=== PATIENT | female | born 1970 | race American Indian/Alaskan Native ===

== ENCOUNTER 2017-02-25 11:00 | Inpatient (IN) | payer OTHER ==
[2017-02-25] MEDS ORDERED: NITROSTAT SL ONE (12:56)
[2017-02-25] MEDS ORDERED: ASPIRIN PO ONE (12:56)
[2017-02-25] MEDS ORDERED: CATAPRES PO ONE (12:57)
--- NOTE | 2017-02-25 12:57 | Emergency Department Report ---
ED Chest Pain HPI - General Chief Complaint: Chest Pain Stated Complaint: CHEST PAIN Time Seen by Provider: 02/25/17 12:31 Source: patient, EMS Mode of arrival: Stretcher Limitations: No Limitations - History of Present Illness Initial Comments: Vision is a 46-year-old asthmatic female who is presenting with chest pain. Patient states that pain started approximately a week ago I was off and on. Patient states feels very mild initially. The patient does state that her pain was exertional. Patient states for the past 24 hours of pain in his increased in severity and it has gone from initially a 2 out of 10 in severity to 8 out of 10 in severity. Patient states there is some radiation of his pain to the left arm and back. Patient describes the pain as a crampy pain at the left breast. Patient states she has had a abnormal EKG in the past and has had a cardiac evaluation several years ago in [place]. Patient normally carries a copy of her EKG with her however she did not bring it today. Patient states the pain is slightly improved after aspirin but is still present. Pain at the time of interview was 3 out of 10 in severity MD Complaint: chest pain - Related Data Allergies Allergy/AdvReac Type Severity Reaction Status Date / Time fluticasone [From Flonase] Allergy Unknown Verified 02/25/17 12:39 prochlorperazine Allergy Unknown Verified 02/25/17 12:39 [From Compazine] Heart Score - HEART Score History: Highly suspicious EKG: Significant ST-depression Age: 45-65 Risk factors: 1-2 risk factors Troponin: < normal limit HEART Score: 6 ED Review of Systems ROS: Stated complaint: CHEST PAIN Other details as noted in HPI Comment: All other systems reviewed and negative ED Past Medical Hx - Past Medical History Previous Medical History?: Yes Hx Hypertension: Yes Hx GERD: Yes Additional medical history: mag deficiency ED Physical Exam - General Limitations: No Limitations General appearance: alert, in no apparent distress - Head Head exam: Present: atraumatic, normocephalic - Eye Eye exam: Present: normal appearance - ENT ENT exam: Present: mucous membranes moist - Neck Neck exam: Present: normal inspection - Respiratory Respiratory exam: Present: normal lung sounds bilaterally. Absent: respiratory distress - Cardiovascular Cardiovascular Exam: Present: regular rate, normal rhythm. Absent: systolic murmur, diastolic murmur, rubs, gallop - GI/Abdominal GI/Abdominal exam: Present: soft, normal bowel sounds - Extremities Exam Extremities exam: Present: normal inspection - Back Exam Back exam: Present: normal inspection - Neurological Exam Neurological exam: Present: alert, oriented X3 - Psychiatric Psychiatric exam: Present: normal affect, normal mood - Skin Skin exam: Present: warm, dry, intact, normal color. Absent: rash ED Course Vital Signs 02/25/17 02/25/17 02/25/17 12:42 12:45 13:00 Temperature Pulse Rate 91 H 94 H 90 Respiratory 13 21 17 Rate Blood Pressure 195/165 205/142 Blood Pressure [Left] O2 Sat by Pulse Oximetry 02/25/17 02/25/17 02/25/17 13:06 13:08 13:10 Temperature 98.2 F Pulse Rate 91 H 87 Respiratory 19 19 Rate Blood Pressure 195/165 Blood Pressure 195/165 [Left] O2 Sat by Pulse 98 98 Oximetry 02/25/17 02/25/17 02/25/17 13:15 13:30 13:45 Temperature Pulse Rate 88 87 82 Respiratory 19 16 21 Rate Blood Pressure 198/134 197/141 179/131 Blood Pressure [Left] O2 Sat by Pulse Oximetry CORY score - Cory Score Age > 65: (0) No Aspirin use within the Past 7 Days: (1) Yes 3 or more CAD Risk Factors: (0) No 2 or more Angina events in past 24 hrs: (1) Yes Known CAD with more than 50% Stenosis: (0) No Elevated Cardiac Markers: (0) No ST Deviation Greater than 0.5mm: (1) Yes CORY Score: 3 ED Medical Decision Making - Lab Data Result diagrams: 02/25/17 Unknown 02/25/17 Unknown - EKG Data -: EKG Interpreted by Sd - EKG Data Interpretation: other (EKG shows sinus rhythm rate of 87 axis is normal intervals are normal there is LVH [address] depression in inferior leads there is [address] elevation in V1 through V3 T-wave inversions in lateral leads, interpretation is 1247) - Radiology Data Radiology results: report reviewed no acute process - Medical Decision Making After EKG was performed patient's EKG was sent to Dr. Ingram with interventional cardiology. Patient was deemed not a STEMI and that the changes on her EKG will most likely secondary to left ventricular hypertrophy. Patient was nondiaphoretic with very little pain or discomfort at the time of interview. We have elected to wait to see if the troponin is elevated. The troponin was normal. Patient's will still be admitted for serial enzymes and blood pressure control. At the time of admission blood pressure was 170 systolic Critical Care Time: Yes Critical care time in (mins) excluding proc time.: 30 Critical care attestation.: If time is entered above; I have spent that time in minutes in the direct care of this critically ill patient, excluding procedure time. ED Disposition Clinical Impression: Hypertensive emergency without congestive heart failure Chest pain Qualifiers: Chest pain type: unspecified Qualified Code(s): R07.9 - Chest pain, unspecified Disposition: 09 OP ADMIT IP TO THIS HOSP Is pt being admited?: Yes Does the pt Need Aspirin: No Condition: Stable Instructions: Hypertension (ED), Chest Pain (ED) Referrals: PRIMARY CARE, [Primary Care Provider] - 3-5 Days
[2017-02-25 13:01] LABS: Bacteria,Urine 1+ /HPF (Negative); Bilirubin,Urine NEG (Negative); Blood,Urine NEG (Negative); Color,Urine Yellow (Yellow); Nitrite,Urine NEG (Negative); Urobilinogen,Urine < 2.0 mg/dL (<2.0)
[2017-02-25 13:15] LABS: Protein,Urine >500 mg/dL (Negative)
--- NOTE | 2017-02-25 13:27 | XRay Report ---
AP CHEST: HISTORY: chest pain AP view of the chest demonstrates a normal mediastinal and cardiac contour with clear lungs and normal bony and soft tissue structures. IMPRESSION: Unremarkable AP chest.
[2017-02-25 13:28] LABS: Basophils % (Auto) 0.5 % (0.0-1.8); Eosinophils # (Auto) 0.1 K/mm3 (0.0-0.4); Eosinophils % (Auto) 0.9 % (0.0-4.3); Hematocrit 47.7 % (30.3-42.9); Hemoglobin 15.2 gm/dl (10.1-14.3); Mean Corpuscular HGB Conc 32 % (30-34); Mean Corpuscular Hemoglobin 28 pg (28-32); Mean Corpuscular Volume 88 fl (79-97); Monocytes # (Auto) 0.6 K/mm3 (0.0-0.8); Monocytes % (Auto) 7.2 % (0.0-7.3); Platelet Count 219 K/mm3 (140-440); Red Blood Count 5.39 M/mm3 (3.65-5.03); Red Cell Distribution Width 15.1 % (13.2-15.2)
[2017-02-25 13:51] LABS: Albumin 4.9 g/dL (3.9-5); Calcium 9.6 mg/dL (8.4-10.2)
[2017-02-25 14:36] LABS: INR 0.95 (0.87-1.13)
--- NOTE | 2017-02-25 20:09 | History and Physical Report ---
History of Present Illness Date of examination: 02/25/17 Date of admission: 02/25/17 14:19 Chief complaint: Chieg complaint: Chest pain for 1 week History of present illness: History of Present Illness: 46-year-old -[place] femalewith history of asthma hypertension and GERD comes in for intermittent chest pain for 1 week. Chest pain is exertional. The chest pain has increased in in. Now it is about 8 on a scale of 1 to 10. Pain is dull in character and sometimes crampy.No diaphoresis.No shortness of breath.no palpitations. Patient apparently had an EKG in the past. Patient did not bring the EKG today. No syncope. No seizures Past Medical History Previous Medical History?: Yes Hx Hypertension: Yes Hx GERD: Yes Additional medical history: mag deficiency Past surgical history: none Social history doesn't smoke no alcohol Family history hypertension Review of System: Constitutional: no fever, no chills, no weight loss Ears, eyes, nose, mouth and throat: no nasal congestion, no nasal discharge, no sinus pressure, no vision change, no red eye. Neck: No neck pain or rigidity. Cardiovascular: Chest pain, no orthopnea, no palpitations, no leg swelling Respiratory: No shortness of breath, no cough, no congestion, no wheezing Gastrointestinal: no abdominal pain, no nausea, no vomiting Genitourinary : no dysuria, no hematuria Musculoskeletal: no joint swelling or muscle ache Integumentary: no rash, no pruritis Neurological: no parathesias, no numbness, no tingling Endocrine: no cold or heat intolerance, no polyuria or polydipsia Hematologic/Lymphatic: no easy bruising, no easy bleeding, no gland swelling Allergic/Immunologic: no urticaria, no angioedema. Medications and Allergies Allergies Allergy/AdvReac Type Severity Reaction Status Date / Time fluticasone [From Flonase] Allergy Unknown Verified 02/25/17 12:39 prochlorperazine Allergy Unknown Verified 02/25/17 12:39 [From Compazine] Home Medications Medication Instructions Recorded Confirmed Last Taken Type Amlodipine Besylate [Norvasc] 10 mg PO QDAY 02/25/17 02/25/17 Unknown History Losartan [Cozaar] 100 mg PO QDAY 02/25/17 02/25/17 Unknown History Active Meds: Active Medications Heparin Sodium (Porcine) (Heparin) 5,000 unit SUB-Q Q8HR ERIC Exam - Physical Exam Narrative exam: lying in bed comfortably - Constitutional Vitals: Temp Pulse Resp BP Pulse Ox 98.2 F 74 14 119/86 98 02/25/17 13:10 02/25/17 16:30 02/25/17 16:30 02/25/17 16:30 02/25/17 13:10 General appearance: Present: no acute distress, well-nourished - EENT Eyes: Present: PERRL ENT: hearing intact, clear oral mucosa - Neck Neck: Present: supple, normal ROM - Respiratory Respiratory effort: normal Respiratory: bilateral: CTA - Cardiovascular Heart rate: 80 Rhythm: regular Heart Sounds: Present: S1 & S2. Absent: rub, click - Extremities Extremities: pulses symmetrical, No edema Peripheral Pulses: within normal limits - Abdominal General gastrointestinal: Present: soft, non-tender, non-distended, normal bowel sounds Female genitourinary: Present: normal - Integumentary Integumentary: Present: clear, warm, dry - Musculoskeletal Musculoskeletal: gait normal, strength equal bilaterally - Psychiatric Psychiatric: appropriate mood/affect, intact judgment & insight - Neurologic Neurologic: CNII-XII intact, moves all extremities - Allied Health Allied health notes reviewed: nursing, case management Results - Labs CBC & Chem 7: 02/25/17 Unknown 02/25/17 Unknown Labs: Laboratory Last Values WBC 8.4 K/mm3 (4.5-11.0) 02/25/17 Unknown RBC 5.39 M/mm3 (3.65-5.03) H 02/25/17 Unknown Hgb 15.2 gm/dl (10.1-14.3) H 02/25/17 Unknown Hct 47.7 % (30.3-42.9) H 02/25/17 Unknown MCV 88 fl (79-97) 02/25/17 Unknown MCH 28 pg (28-32) 02/25/17 Unknown MCHC 32 % (30-34) 02/25/17 Unknown RDW 15.1 % (13.2-15.2) 02/25/17 Unknown Plt Count 219 K/mm3 (140-440) 02/25/17 Unknown Lymph % (Auto) 12.0 % (13.4-35.0) L 02/25/17 Unknown [place] % (Auto) 7.2 % (0.0-7.3) 02/25/17 Unknown Eos % (Auto) 0.9 % (0.0-4.3) 02/25/17 Unknown Baso % (Auto) 0.5 % (0.0-1.8) 02/25/17 Unknown Lymph # 1.0 K/mm3 (1.2-5.4) L 02/25/17 Unknown [place] # 0.6 K/mm3 (0.0-0.8) 02/25/17 Unknown Eos # 0.1 K/mm3 (0.0-0.4) 02/25/17 Unknown Baso # 0.0 K/mm3 (0.0-0.1) 02/25/17 Unknown Seg Neutrophils % 79.4 % (40.0-70.0) H 02/25/17 Unknown Seg Neutrophils # 6.7 K/mm3 (1.8-7.7) 02/25/17 Unknown PT 13.2 Sec. (12.2-14.9) 02/25/17 14:06 INR 0.95 (0.87-1.13) 02/25/17 14:06 APTT 32.0 Sec. (24.2-36.6) 02/25/17 14:06 D-Dimer 238.58 ng/mlDDU (0-234) H 02/25/17 14:06 Sodium 139 mmol/L (137-145) 02/25/17 Unknown Potassium 4.2 mmol/L (3.6-5.0) 02/25/17 Unknown Chloride 95.0 mmol/L (98-107) L 02/25/17 Unknown Carbon Dioxide 28 mmol/L (22-30) 02/25/17 Unknown Anion Gap 20 mmol/L 02/25/17 Unknown BUN 12 mg/dL (7-17) 02/25/17 Unknown Creatinine 1.2 mg/dL (0.7-1.2) 02/25/17 Unknown Estimated GFR 59 ml/min 02/25/17 Unknown BUN/Creatinine Ratio 10 % 02/25/17 Unknown Glucose 89 mg/dL (65-100) 02/25/17 Unknown Calcium 9.6 mg/dL (8.4-10.2) 02/25/17 Unknown Total Bilirubin 1.00 mg/dL (0.1-1.2) 02/25/17 Unknown AST 28 units/L (5-40) 02/25/17 Unknown ALT 17 units/L (7-56) 02/25/17 Unknown Alkaline Phosphatase 63 units/L (35-129) 02/25/17 Unknown Troponin T 0.016 ng/mL (0.00-0.029) 02/25/17 Unknown Total Protein 8.0 g/dL (6.3-8.2) 02/25/17 Unknown Albumin 4.9 g/dL (3.9-5) 02/25/17 Unknown Albumin/Globulin Ratio 1.6 % 02/25/17 Unknown HCG, Qual Negative (Negative) 02/25/17 Unknown Urine Color Yellow (Yellow) 02/25/17 12:33 Urine Turbidity Clear (Clear) 02/25/17 12:33 Urine pH 6.0 (5.0-7.0) 02/25/17 12:33 Ur Specific [place] 1.013 (1.003-1.030) 02/25/17 12:33 Urine Protein >500 mg/dL (Negative) 02/25/17 12:33 Urine Glucose (UA) 50 mg/dL (Negative) 02/25/17 12:33 Urine Ketones Neg mg/dL (Negative) 02/25/17 12:33 Urine Blood Neg (Negative) 02/25/17 12:33 Urine Nitrite Neg (Negative) 02/25/17 12:33 Urine Bilirubin Neg (Negative) 02/25/17 12:33 Urine Urobilinogen < 2.0 mg/dL (<2.0) 02/25/17 12:33 Ur Leukocyte Esterase Neg (Negative) 02/25/17 12:33 Urine WBC (Auto) 8.0 /HPF (0.0-6.0) H 02/25/17 12:33 Urine RBC (Auto) 2.0 /HPF (0.0-6.0) 02/25/17 12:33 U Epithel Cells (Auto) 1.0 /HPF (0-13.0) 02/25/17 12:33 Urine Bacteria (Auto) 1+ /HPF (Negative) 02/25/17 12:33 - Imaging and Cardiology EKG: report reviewed (normal sinus rhythm no acute ST-T wave changes) Chest x-ray: report reviewed (unremarkable) Assessment and Plan Advance Directives: Yes (full code) VTE prophylaxis?: Chemical Plan of care discussed with patient/family: Yes - Patient Problems (1) Chest pain Current Visit: Yes Status: Acute Qualifiers: Chest pain type: unspecified Qualified Code(s): R07.9 - Chest pain, unspecified Plan to address problem: chest pain workup. Serial cardiac enzymes and Lexiscan. Patient has GERD by history. GERD is a Possibility. Costochondritis unlikely. No chest wall tenderness. (2) Hypertension Current Visit: Yes Status: Chronic Qualifiers: Hypertension type: essential hypertension Qualified Code(s): I10 - Essential (primary) hypertension Plan to address problem: resume antihypertensives (3) GERD (gastroesophageal reflux disease) Current Visit: Yes Status: Chronic Qualifiers: Esophagitis presence: without esophagitis Qualified Code(s): K21.9 - Gastro -esophageal reflux disease without esophagitis Plan to address problem: Protonix initiated (4) Asthma Current Visit: Yes Status: Inactive Plan to address problem: AAsthma inactive. Bronchodilators if necessary (5) DVT prophylaxis Current Visit: Yes Status: Acute Plan to address problem: Lovenox 40 mg subcutaneous daily
[2017-02-25] MEDS ORDERED: DULCOLAX PR PRN (20:11)
[2017-02-25] MEDS ORDERED: DILAUDID IV PRN (20:11)
[2017-02-25] MEDS ORDERED: TYLENOL PO PRN (20:11)
[2017-02-25] MEDS ORDERED: AMBIEN PO PRN (20:11)
[2017-02-25] MEDS ORDERED: MORPHINE IV PRN (20:11)
[2017-02-25] MEDS ORDERED: MILK OF MAGNESIA PO PRN (20:11)
[2017-02-25] MEDS ORDERED: ZOFRAN IV PRN (20:11)
[2017-02-25] MEDS ORDERED: NON-FORMULARY (Losartan [Cozaar] 100 MG) PO SCH (20:15)
[2017-02-25 21:17] LABS: Creatine Kinase MB 6.8 ng/mL (0.0-4.0)
[2017-02-25] MEDS: NORVASC PO SCH (22:08)
[2017-02-25] MEDS: COZAAR PO SCH (22:08)
[2017-02-25] MEDS: HEPARIN SUB-Q SCH (22:09)
[2017-02-25] MEDS: PROTONIX PO SCH (23:02)
[2017-02-25] MEDS: PERCOCET 5/325 PO PRN (23:10)
[2017-02-26 04:06] LABS: Basophils # (Auto) 0.1 K/mm3 (0.0-0.1); Eosinophils # (Auto) 0.1 K/mm3 (0.0-0.4); Eosinophils % (Auto) 1.4 % (0.0-4.3); Hematocrit 47.2 % (30.3-42.9); Hemoglobin 14.9 gm/dl (10.1-14.3); Lymphocytes # (Auto) 1.6 K/mm3 (1.2-5.4); Lymphocytes % (Auto) 23.6 % (13.4-35.0); Mean Corpuscular HGB Conc 32 % (30-34); Mean Corpuscular Hemoglobin 28 pg (28-32); Mean Corpuscular Volume 89 fl (79-97); Monocytes # (Auto) 0.7 K/mm3 (0.0-0.8); Monocytes % (Auto) 10.5 % (0.0-7.3); Platelet Count 208 K/mm3 (140-440); Red Cell Distribution Width 15.2 % (13.2-15.2)
[2017-02-26 04:42] LABS: Creatine Kinase MB 7.2 ng/mL (0.0-4.0)
[2017-02-26 04:46] LABS: Albumin 4.5 g/dL (3.9-5); Calcium 9.2 mg/dL (8.4-10.2)
[2017-02-26] MEDS: HEPARIN SUB-Q SCH ×2 (05:34→14:43)
[2017-02-26] MEDS: NORVASC PO SCH (09:48)
[2017-02-26] MEDS: COZAAR PO SCH (09:48)
[2017-02-26] MEDS: PROTONIX PO SCH (09:48)
[2017-02-26 09:51] LABS: Creatine Kinase MB 6.4 ng/mL (0.0-4.0)
[2017-02-26] MEDS ORDERED: LEXISCAN IV ONE ×3 (12:32→13:34)
--- NOTE | 2017-02-26 14:20 | Discharge Summary ---
Providers - Providers Date of Admission: 02/25/17 14:19 Date of discharge: 02/26/17 Attending physician: EYAD LUONG Primary care physician: [employer] [employer] [facility] Hospitalization Condition: Stable Hospital course: Discharge diagnosis and management: (1) Chest pain Current Visit: Yes Status: Acute Qualifiers: Chest pain type: unspecified Qualified Code(s): R07.9 - Chest pain, unspecified Plan to address problem: chest pain workup. Serial cardiac enzymes and Lexiscan. Patient has GERD by history. GERD is a Possibility. Costochondritis unlikely. No chest wall tenderness. (2) Hypertension Current Visit: Yes Status: Chronic Qualifiers: Hypertension type: essential hypertension Qualified Code(s): I10 - Essential (primary) hypertension Plan to address problem: resume antihypertensives (3) GERD (gastroesophageal reflux disease) Current Visit: Yes Status: Chronic Qualifiers: Esophagitis presence: without esophagitis Qualified Code(s): K21.9 - Gastro -esophageal reflux disease without esophagitis Plan to address problem: Protonix initiated (4) Asthma Current Visit: Yes Status: Inactive Plan to address problem: AAsthma inactive. Bronchodilators if necessary (5) DVT prophylaxis Current Visit: Yes Status: Acute Plan to address problem: Lovenox 40 mg subcutaneous daily Disposition: DC-01 TO HOME OR SELFCARE Time spent for discharge: 32 minutes Core Measure Documentation - Palliative Care Palliative Care/ Comfort Measures: Not Applicable - Core Measures Any of the following diagnoses?: none Exam - Constitutional Vitals: Temp Pulse Resp BP Pulse Ox 98.2 F 98 H 18 105/65 96 02/26/17 09:09 02/26/17 12:56 02/26/17 09:09 02/26/17 12:56 02/26/17 09:09 General appearance: Present: no acute distress, well-nourished - EENT Eyes: Present: PERRL ENT: hearing intact, clear oral mucosa - Neck Neck: Present: supple, normal ROM - Respiratory Respiratory effort: normal Respiratory: bilateral: CTA - Cardiovascular Heart Sounds: Present: S1 & S2. Absent: rub, click - Extremities Extremities: pulses symmetrical, No edema Peripheral Pulses: within normal limits - Abdominal General gastrointestinal: Present: soft, non-tender, non-distended, normal bowel sounds - Integumentary Integumentary: Present: clear, warm, dry - Musculoskeletal Musculoskeletal: gait normal, strength equal bilaterally - Psychiatric Psychiatric: appropriate mood/affect, intact judgment & insight - Neurologic Neurologic: CNII-XII intact, moves all extremities Plan Activity: advance as tolerated Weight Bearing Status: Partial Weight Bearing Diet: low fat, low salt Follow up with: PRIMARY CARE, [Primary Care Provider] - 3-5 Days Prescriptions: Pantoprazole [Protonix TAB] 40 mg PO QDAY #30 tablet
[2017-02-26] MEDS: PERCOCET 5/325 PO PRN (14:43)
--- NOTE | 2017-02-26 14:46 | Progress Note ---
Assessment and Plan (1) Chest pain Current Visit: Yes Status: Acute Qualifiers: Chest pain type: unspecified Qualified Code(s): R07.9 - Chest pain, unspecified Plan to address problem: chest pain workup. Serial cardiac enzymes and Lexiscan. Patient has GERD by history. GERD is a Possibility. Costochondritis unlikely. No chest wall tenderness. (2) Hypertension Current Visit: Yes Status: Chronic Qualifiers: Hypertension type: essential hypertension Qualified Code(s): I10 - Essential (primary) hypertension Plan to address problem: resume antihypertensives (3) GERD (gastroesophageal reflux disease) Current Visit: Yes Status: Chronic Qualifiers: Esophagitis presence: without esophagitis Qualified Code(s): K21.9 - Gastro -esophageal reflux disease without esophagitis Plan to address problem: Protonix initiated (4) Asthma Current Visit: Yes Status: Inactive Plan to address problem: AAsthma inactive. Bronchodilators if necessary (5) DVT prophylaxis Current Visit: Yes Status: Acute Plan to address problem: Lovenox 40 mg subcutaneous daily Brief history: Radiological test: Hospitalist Physical exam: GENERAL: well-developed and well-nourished lying on bed appeared to be in no discomfort. HEENT: Normocephalic. Atraumatic. No conjunctival congestion or icterus. Patient has moist mucous membranes. NECK: Supple. Trachea midline. CHEST/LUNGS: Clear to auscultated bilaterally, breathing nonlabored. No wheezes crackles or rhonchi. HEART/CARDIOVASCULAR: Regular in rate and rhythm. S1 and S2 positive. ABDOMEN: Abdomen is soft, nontender. Patient has normal bowel sounds. SKIN: There is no rash. Warm and dry. NEURO: No focal motor deficit. Follows command. MUSCULOSKELETAL: No joint effusion or tenderness. EXTRIMITY: No edema, no cyanosis or clubbing. PSYCH: Cooperative. Subjective Date of service: 02/26/17 Interval history: Patient seen and examined. Medical records and medication list reviewed. No acute event overnight noted by the RN. Patient denies any chest pain or difficulty breathing. Patient is tolerating diet. Discussed plan of care at bedside with patient. Objective - Constitutional Vitals: Vital Signs - 12hr 02/26/17 02/26/17 02/26/17 05:29 08:17 09:09 Temperature 98.2 F 98.2 F 98.2 F Pulse Rate 79 74 74 Respiratory 18 16 18 Rate Blood Pressure 91/56 91/55 Blood Pressure 91/55 [Left] O2 Sat by Pulse 97 95 96 Oximetry 02/26/17 02/26/17 02/26/17 12:35 12:52 12:53 Temperature Pulse Rate 83 93 H 97 H Respiratory Rate Blood Pressure 120/87 135/95 98/69 Blood Pressure [Left] O2 Sat by Pulse Oximetry 02/26/17 02/26/17 02/26/17 12:54 12:55 12:56 Temperature Pulse Rate 99 H 99 H 98 H Respiratory Rate Blood Pressure 105/69 108/68 105/65 Blood Pressure [Left] O2 Sat by Pulse Oximetry - Labs CBC & Chem 7: 02/26/17 03:27 02/26/17 04:00 Labs: Abnormal lab results 02/25/17 02/26/17 02/26/17 Range/Units 20:43 03:27 03:27 RBC 5.30 H (3.65-5.03) M/mm3 Hgb 14.9 H (10.1-14.3) gm/dl Hct 47.2 H (30.3-42.9) % [place] % (Auto) 10.5 H (0.0-7.3) % Sodium (137-145) mmol/L Chloride (98-107) mmol/L BUN (7-17) mg/dL Creatinine (0.7-1.2) mg/dL Glucose (65-100) mg/dL Total Creatine Kinase 313 H 359 H (30-135) units/L CK-MB (CK-2) 6.8 H 7.2 H (0.0-4.0) ng/mL 02/26/17 02/26/17 Range/Units 04:00 09:09 RBC (3.65-5.03) M/mm3 Hgb (10.1-14.3) gm/dl Hct (30.3-42.9) % [place] % (Auto) (0.0-7.3) % Sodium 134 L (137-145) mmol/L Chloride 91.6 L (98-107) mmol/L BUN 19 H (7-17) mg/dL Creatinine 1.8 H (0.7-1.2) mg/dL Glucose 112 H (65-100) mg/dL Total Creatine Kinase 296 H (30-135) units/L CK-MB (CK-2) 6.4 H (0.0-4.0) ng/mL
[2017-02-26] MEDS ORDERED: NACL 0.9% 1000 ML 1,000 ML IV SCH (15:00)
[2017-02-26 18:21] VITALS: BP 98/63
== END 2017-02-26 21:22 | disposition left against medical advice (07) | DRG 313 ==
LOC: ED 11:00 → 4A 14:19
PROVIDERS: ADMIT Internal Medicine; ATTEND Internal Medicine
DX: R07.89 Other chest pain (principal); I16.1 Hypertensive emergency; J45.909 Unspecified asthma, uncomplicated; K21.9 Gastro-esophageal reflux disease without esophagitis; I10 Essential (primary) hypertension; Z82.49 Family history of ischemic heart disease and other diseases of the circulatory system; Z88.1 Allergy status to other antibiotic agents; Z88.8 Allergy status to other drugs, medicaments and biological substances
CPT/HCPCS: 36415; 71045; 78452; 80053; 81001; 82550; 82553; 84484; 84703; 85025; 85379; 85610; 85730; 93005; 93010; 93017; 99291; A9502; J1644; J2785; J7030

== ENCOUNTER 2018-06-09 11:49 | Inpatient (IN) | payer OTHER ==
[2018-06-09] MEDS ORDERED: NACL 0.9% 1000 ML 1,000 ML IV ONE (11:58)
[2018-06-09] MEDS ORDERED: MORPHINE IV ONE (12:01)
[2018-06-09] MEDS ORDERED: ZOFRAN IV ONE (12:01)
--- NOTE | 2018-06-09 12:05 | Emergency Department Report ---
ED General Adult HPI - General Stated complaint: H/A Time Seen by Provider: 06/09/18 11:58 - History of Present Illness Initial comments: Patient is a 47-year-old female with history of migraine, paroxysmal atrial fibrillation, hypertension and a remote history of pharyngeal carcinoma with complete remission. Patient presented to the ER complaining of shortness of breath, headache, nausea and vomiting since last night. Patient denied any fever, chills, weakness numbness of tingling sensation. Patient denied any neck pain or neck rigidity. - Related Data Home Medications Medication Instructions Recorded Confirmed Last Taken Amlodipine Besylate [Norvasc] 10 mg PO QDAY 02/25/17 02/25/17 Unknown Losartan [Cozaar] 100 mg PO QDAY 02/25/17 02/25/17 Unknown Previous Rx's Medication Instructions Recorded Last Taken Type Pantoprazole [Protonix TAB] 40 mg PO QDAY #30 tablet 02/26/17 Unknown Rx Allergies Allergy/AdvReac Type Severity Reaction Status Date / Time fluticasone [From Flonase] Allergy Unknown Verified 02/25/17 12:39 prochlorperazine Allergy Unknown Verified 02/25/17 12:39 [From Compazine] ED Review of Systems ROS: Stated complaint: H/A Other details as noted in HPI Comment: All other systems reviewed and negative ENT: congestion Respiratory: shortness of breath Cardiovascular: palpitations. denies: chest pain Gastrointestinal: nausea, vomiting, diarrhea. denies: abdominal pain Musculoskeletal: denies: back pain Neurological: headache. denies: weakness, numbness, paresthesias, confusion, abnormal gait ED Past Medical Hx - Past Medical History Hx Hypertension: Yes Hx GERD: Yes Additional medical history: mag deficiency - Social History Smoking Status: Never Smoker - Medications Home Medications: Home Medications Medication Instructions Recorded Confirmed Last Taken Type Amlodipine Besylate [Norvasc] 10 mg PO QDAY 02/25/17 02/25/17 Unknown History Losartan [Cozaar] 100 mg PO QDAY 02/25/17 02/25/17 Unknown History Pantoprazole [Protonix TAB] 40 mg PO QDAY #30 tablet 02/26/17 Unknown Rx ED Physical Exam - General Limitations: No Limitations General appearance: alert, in no apparent distress - Head Head exam: Present: atraumatic, normocephalic, normal inspection - Eye Eye exam: Present: normal appearance, PERRL - ENT ENT exam: Present: normal exam, normal orophraynx, mucous membranes moist - Neck Neck exam: Present: normal inspection, full ROM. Absent: tenderness, meningismus, lymphadenopathy, thyromegaly - Respiratory Respiratory exam: Present: normal lung sounds bilaterally - Cardiovascular Cardiovascular Exam: Present: tachycardia, irregular rhythm - GI/Abdominal GI/Abdominal exam: Present: soft, normal bowel sounds. Absent: distended, tenderness, guarding, rebound, rigid, organomegaly, mass, bruit, pulsatile mass, hernia - Extremities Exam Extremities exam: Present: normal inspection, full ROM, normal capillary refill - Back Exam Back exam: Present: normal inspection, full ROM. Absent: tenderness, CVA tenderness (R), CVA tenderness (L), muscle spasm, paraspinal tenderness, vertebral tenderness - Neurological Exam Neurological exam: Present: alert, oriented X3, CN II-XII intact, normal gait, reflexes normal - Skin Skin exam: Present: warm, intact, normal color ED Course Vital Signs 06/09/18 06/09/18 06/09/18 11:55 12:30 14:28 Temperature 97.7 F Pulse Rate 180 H 180 H 162 H Respiratory 19 19 Rate Blood Pressure 160/138 160/138 Blood Pressure 160/138 172/113 [Left] O2 Sat by Pulse 100 99 Oximetry - Reevaluation(s) Reevaluation #1: 06/09/18 15:09 Patient stated that she is feeling much better. Heart rate went down from 180 to 124. ED Medical Decision Making - Lab Data Result diagrams: 06/09/18 12:16 06/09/18 12:17 - EKG Data -: EKG Interpreted by Il Rate: tachycardia - EKG Data 06/09/18 15:34 Atrial fibrillation with RVR. - Radiology Data Radiology results: report reviewed Referring Physician: SUDARSHAN STEPHENS Patient Name: SANDY ENRIQUE Date of : 1970 Sex: Female Report Date: 2018-06-09 Report Status: Finalized Findings [facility] [address] [place] [address] Cat Scan Report Signed Patient: SANDY ENRIQUE MR#: [id number] : 1970 Acct:[id number] Age/Sex: 47 / F ADM Date: 06/09/18 Loc: ED Attending Dr: Ordering Physician: SUDARSHAN STEPHENS Date of Service: 06/09/18 Procedure(s): CT head/brain wo con Accession Number(s): [id number] cc: SUDARSHAN STEPHENS PROCEDURE: CT HEAD/BRAIN WO CON TECHNIQUE: CT images of the head were obtained without the use of IV contrast HISTORY: headache COMPARISONS: None available FINDINGS: No CT evidence of intracranial mass, hemorrhage, acute territorial infarction, or hydrocephalus. The intracranial arteries are symmetric in density. There is left maxillary sinus mucosal thic kening. Paranasal sinuses are otherwise aerated. Mastoids are aerated. No acute osseous abnormality is seen. IMPRESSION: Partial left maxillary sinus opacification. No CT evidence of intracranial abnormality. This document is electronically signed by Lexi Reeder MD., June 09 2018 02:26:33 PM ET Transcribed By: [facility] Dictated By: LEXI REEDER M.D. Electronically Authenticated By: LEXI REEDER M.D. Signed Date/Time: 06/09/18 1428 DD/ 1343 TD/TT: 06/09/18 1343 - Medical Decision Making Patient is a 47-year-old female with history of migraine, paroxysmal atrial fibrillation, hypertension and a remote history of pharyngeal carcinoma with complete remission. Patient presented to the ER complaining of shortness of breath, headache, nausea and vomiting since last night. Patient denied any fever, chills, weakness numbness of tingling sensation. Patient denied any neck pain or neck rigidity. Patient found to be in atrial fibrillation with RVR, rate of 180. Patient received Cardizem 20 mg IV and started on Cardizem drip at 5 mg/h. Patient stated that she is feeling better. Patient's CTA chest is positive for pulmonary embolism. I discussed the patient is Dr. Herrera, he agreed to admit the patient to medical service. Critical Care Time: Yes Critical care time in (mins) excluding proc time.: 30 Critical care attestation.: If time is entered above; I have spent that time in minutes in the direct care of this critically ill patient, excluding procedure time. ED Disposition Clinical Impression: Atrial fibrillation with RVR, Shortness of breath, Pulmonary embolism Disposition: DC-09 OP ADMIT IP TO THIS HOSP Is pt being admited?: Yes Condition: Stable Referrals: PRIMARY CARE, [Primary Care Provider] - 3-5 Days
[2018-06-09] MEDS ORDERED: CARDIZEM IV ONE (12:10)
[2018-06-09] MEDS ORDERED: CARDIZEM ONE (12:15)
[2018-06-09 12:42] LABS: Basophils # (Auto) 0.1 K/mm3 (0.0-0.1); Basophils % (Auto) 0.7 % (0.0-1.8); Eosinophils % (Auto) 0.5 % (0.0-4.3); Hematocrit 50.8 % (30.3-42.9); Hemoglobin 16.7 gm/dl (10.1-14.3); Lymphocytes # (Auto) 3.2 K/mm3 (1.2-5.4); Lymphocytes % (Auto) 37.9 % (13.4-35.0); Mean Corpuscular HGB Conc 33 % (30-34); Mean Corpuscular Volume 90 fl (79-97); Monocytes # (Auto) 0.7 K/mm3 (0.0-0.8); Monocytes % (Auto) 7.9 % (0.0-7.3); Platelet Count 252 K/mm3 (140-440); Red Blood Count 5.63 M/mm3 (3.65-5.03); Red Cell Distribution Width 15.4 % (13.2-15.2)
[2018-06-09 12:55] LABS: INR 0.97 (0.87-1.13); Partial Thromboplastin Time 28.3 Sec. (24.2-36.6)
[2018-06-09 12:57] LABS: Calcium 9.9 mg/dL (8.4-10.2)
--- NOTE | 2018-06-09 12:58 | XRay Report ---
PROCEDURE: XR CHEST 1V AP HISTORY: Dyspnea FINDINGS: Single frontal view of the chest was acquired and compared to the prior examination of 2017. There is stable cardiomegaly. There is no evidence of congestive heart failure. There is no consolida tive pulmonary infiltrate. IMPRESSION: Stable cardiomegaly This document is electronically signed by Deniz Barnard MD., June 09 2018 12:56:31 PM ET
[2018-06-09] MEDS: CARDIZEM 100 MG in D5W 80 ML IV SCH (13:59)
--- NOTE | 2018-06-09 14:28 | Cat Scan Report ---
PROCEDURE: CT HEAD/BRAIN WO CON TECHNIQUE: CT images of the head were obtained without the use of IV contrast HISTORY: headache COMPARISONS: None available FINDINGS: No CT evidence of intracranial mass, hemorrhage, acute territorial infarction, or hydrocephalus. The intracranial arteries are symmetric in density. There is left maxillary sinus mucosal thickening. Par anasal sinuses are otherwise aerated. Mastoids are aerated. No acute osseous abnormality is seen. IMPRESSION: Partial left maxillary sinus opacification. No CT evidence of intracranial abnormality. This document is electronically signed by Lexi Reeder MD., June 09 2018 02:26:33 PM ET
--- NOTE | 2018-06-09 15:31 | Cat Scan Report ---
PROCEDURE: CT ANGIO CHEST HISTORY: SOB, ELEVATED D-DIMER FINDINGS: Contrast-enhanced CT angiography of the chest was performed following the intravenous admin istration of iodinated contrast. These images demonstrate pulmonary embolism within the distal aspect of the right main pulmonary larry ry, extending into the right upper lobe pulmonary artery and the descending interlobar artery. Right lower lobe peripheral pulmonary embolism is also present on axial image 123. No left-sided embolism i s seen. There is no aortic dissection. There is some right bilateral apical pulmonary consolidation which is likely pulmonary scarring. There is no pneumothorax. There is no pleural or pericardial effusion. In the upper abdomen, there has been a cholecystectomy. The adrenal glands are within normal limits. IMPRESSION: Pulmonary embolism and distal right main pulmonary artery extending into right upper lobe pulmonary artery and right descending interlobar artery Right lower lobe peripheral pulmonary embolism This document is electronically signed by Deniz Barnard MD., June 09 2018 03:29:38 PM ET
[2018-06-09] MEDS ORDERED: DILAUDID IV PRN ×2 (20:37→20:52)
--- NOTE | 2018-06-09 21:07 | History and Physical Report ---
History of Present Illness Date of examination: 06/09/18 Date of admission: 06/09/18 16:25 Chief complaint: Palpitations and shortness of breath for 1 day History of present illness: 47-year-old female with history of hypertension, GERD and atrial fibrillation presents with feeling weak and palpitations. No chest pain. Some shortness of breath. Patient not taking any blood thinners for atrial fibrillation. The patient has history of pharyngeal cancer in 1991 and was treated with chemotherapy and radiation therapy. In remission for the last 17 years. No pr ecipitating or exacerbating factors. Shortness of breath on exertion present. No recent travel. No fever or chills. Past Medical History Hx Hypertension: Yes Hx GERD: Yes Additional medical history: mag deficiency Social History Smoking Status: Never Smoker Family history Htn Medications Home Medications: Home Medications Medication Instructions Recorded Confirmed Last Taken Type Amlodipine Besylate [Norvasc] 10 mg PO QDAY 02/25/17 02/25/17 Unknown History Losartan [Cozaar] 100 mg PO QDAY 02/25/17 02/25/17 Unknown History Pantoprazole [Protonix TAB] 40 mg PO QDAY #30 tablet 02/26/17 Unknown Rx Review of Systems ROS: Stated complaint: H/A Other details as noted in HPI Comment: All other systems reviewed and negative ENT: congestion Respiratory: shortness of breath Cardiovascular: palpitations. denies: chest pain Gastrointestinal: nausea, vomiting, diarrhea. denies: abdominal pain Musculoskeletal: denies: back pain Neurological: headache. denies: weakness, numbness, paresthesias, confusion, abnormal gait Medications and Allergies Allergies Allergy/AdvReac Type Severity Reaction Status Date / Time fluticasone [From Flonase] Allergy Unknown Verified 02/25/17 12:39 prochlorperazine Allergy Unknown Verified 02/25/17 12:39 [From Compazine] Home Medications Medication Instructions Recorded Confirmed Last Taken Type Amlodipine Besylate [Norvasc] 10 mg PO QDAY 02/25/17 06/09/18 06/09/18 History Losartan [Cozaar] 100 mg PO QDAY 02/25/17 06/09/18 06/09/18 History Pantoprazole [Protonix TAB] 40 mg PO QDAY #30 tablet 02/26/17 06/09/18 Unknown Rx Active Meds: Active Medications Hydromorphone HCl (Dilaudid) 0.5 mg IV Q3H PRN PRN Reason: Pain , Severe (7-10) Diltiazem HCl 100 mg/ Dextrose 100 mls @ 5 mls/hr IV DIRECT ERIC; Protocol Last Admin: 06/09/18 13:59 Dose: 5 mg/hr, 5 mls/hr Documented by: Exam - Constitutional Vitals: Temp Pulse Resp BP Pulse Ox 98.1 F 87 20 128/93 95 06/09/18 19:48 06/09/18 19:48 06/09/18 19:48 06/09/18 19:48 06/09/18 19:48 General appearance: Present: no acute distress, well-nourished - EENT Eyes: Present: PERRL ENT: hearing intact, clear oral mucosa - Neck Neck: Present: supple, normal ROM - Respiratory Respiratory effort: normal Respiratory: bilateral: CTA - Cardiovascular Heart rate: 130 Rhythm: irregularly irregular Heart Sounds: Present: S1 & S2. Absent: rub, click - Extremities Extremities: no ischemia, pulses intact, pulses symmetrical, No edema Peripheral Pulses: within normal limits - Abdominal General gastrointestinal: Present: soft, non-tender, non-distended, normal bowel sounds Female genitourinary: Present: normal - Rectal Rectal Exam: deferred - Integumentary Integumentary: Present: clear, warm, dry - Musculoskeletal Musculoskeletal: gait normal, strength equal bilaterally - Psychiatric Psychiatric: appropriate mood/affect, intact judgment & insight - Neurologic Neurologic: CNII-XII intact, moves all extremities - Allied Health Allied health notes reviewed: nursing, case management Results - Labs CBC & Chem 7: 06/09/18 12:16 06/09/18 12:17 Labs: Laboratory Last Values WBC 8.4 K/mm3 (4.5-11.0) 06/09/18 12:16 RBC 5.63 M/mm3 (3.65-5.03) H 06/09/18 12:16 Hgb 16.7 gm/dl (10.1-14.3) H 06/09/18 12:16 Hct 50.8 % (30.3-42.9) H 06/09/18 12:16 MCV 90 fl (79-97) 06/09/18 12:16 MCH 30 pg (28-32) 06/09/18 12:16 MCHC 33 % (30-34) 06/09/18 12:16 RDW 15.4 % (13.2-15.2) H 06/09/18 12:16 Plt Count 252 K/mm3 (140-440) 06/09/18 12:16 Lymph % (Auto) 37.9 % (13.4-35.0) H 06/09/18 12:16 [place] % (Auto) 7.9 % (0.0-7.3) H 06/09/18 12:16 Eos % (Auto) 0.5 % (0.0-4.3) 06/09/18 12:16 Baso % (Auto) 0.7 % (0.0-1.8) 06/09/18 12:16 Lymph # 3.2 K/mm3 (1.2-5.4) 06/09/18 12:16 [place] # 0.7 K/mm3 (0.0-0.8) 06/09/18 12:16 Eos # 0.0 K/mm3 (0.0-0.4) 06/09/18 12:16 Baso # 0.1 K/mm3 (0.0-0.1) 06/09/18 12:16 Seg Neutrophils % 53.0 % (40.0-70.0) 06/09/18 12:16 Seg Neutrophils # 4.5 K/mm3 (1.8-7.7) 06/09/18 12:16 PT 13.5 Sec. (12.2-14.9) 06/09/18 12:17 INR 0.97 (0.87-1.13) 06/09/18 12:17 APTT 28.3 Sec. (24.2-36.6) 06/09/18 12:17 D-Dimer 1625.35 ng/mlDDU (0-234) H 06/09/18 12:17 Sodium 138 mmol/L (137-145) 06/09/18 12:17 Potassium 4.0 mmol/L (3.6-5.0) 06/09/18 12:17 Chloride 96.4 mmol/L (98-107) L 06/09/18 12:17 Carbon Dioxide 22 mmol/L (22-30) 06/09/18 12:17 Anion Gap 24 mmol/L 06/09/18 12:17 BUN 24 mg/dL (7-17) H 06/09/18 12:17 Creatinine 1.7 mg/dL (0.7-1.2) H 06/09/18 12:17 Estimated GFR 39 ml/min 06/09/18 12:17 BUN/Creatinine Ratio 14 % 06/09/18 12:17 Glucose 116 mg/dL (65-100) H 06/09/18 12:17 Calcium 9.9 mg/dL (8.4-10.2) 06/09/18 12:17 Troponin T 0.010 ng/mL (0.00-0.029) 06/09/18 18:24 Short CBC 06/09/18 Range/Units 12:16 WBC 8.4 (4.5-11.0) K/mm3 Hgb 16.7 H (10.1-14.3) gm/dl Hct 50.8 H (30.3-42.9) % Plt Count 252 (140-440) K/mm3 [facility] 06/09/18 12:17 Sodium 138 Potassium 4.0 Chloride 96.4 L Carbon Dioxide 22 BUN 24 H Creatinine 1.7 H Glucose 116 H Calcium 9.9 Cardiac Enzymes 06/09/18 06/09/18 06/09/18 Range/Units 12:17 14:54 18:24 Troponin T < 0.010 < 0.010 0.010 (0.00-0.029) ng/mL Short CBC 06/09/18 Range/Units 12:16 WBC 8.4 (4.5-11.0) K/mm3 Hgb 16.7 H (10.1-14.3) gm/dl Hct 50.8 H (30.3-42.9) % Plt Count 252 (140-440) K/mm3 [facility] 06/09/18 12:17 Sodium 138 Potassium 4.0 Chloride 96.4 L Carbon Dioxide 22 BUN 24 H Creatinine 1.7 H Glucose 116 H Calcium 9.9 Cardiac Enzymes 06/09/18 06/09/18 06/09/18 Range/Units 12:17 14:54 18:24 Troponin T < 0.010 < 0.010 0.010 (0.00-0.029) ng/mL - Imaging and Cardiology EKG: report reviewed (atrial fibrillation with RVR heart rate of 130 to 160) Chest x-ray: report reviewed Imaging and Cardiology: CT angiogram IMPRESSION: Pulmonary embolism and distal right main pulmonary artery extending into right upper lobe pulmonary artery and right descending interlobar artery Right lower lobe peripheral pulmonary embolism Chest x-ray FINDINGS: Single frontal view of the chest was acquired and compared to the prior examination of February 25, 2017. There is stable cardiomegaly. There is no evidence of congestive heart failure. There is no consolidative pulmonary infiltrate. IMPRESSION: Stable cardiomegaly Assessment and Plan Advance Directives: Yes (full code) VTE prophylaxis?: Chemical Plan of care discussed with patient/family: Yes - Patient Problems (1) Pulmonary embolism Current Visit: Yes Status: Acute Qualifiers: Chronicity: acute Acute cor pulmonale presence: without acute cor pulmonale Plan to address problem: Patient initiated on IV heparin Vascular surgery consult requested for possible EKOS (2) Atrial fibrillation with RVR Current Visit: Yes Status: Acute Plan to address problem: Patient initiated on IV Cardizem drip at 5 mg per hour Patient also initiated on oral Cardizem for bridging Cardiology consult requested Echocardiogram ordered (3) Polycythemia due to fall in plasma volume Current Visit: Yes Status: Acute Plan to address problem: IV fluids for now Patient is volume depleted (4) GERD (gastroesophageal reflux disease) Current Visit: No Status: Chronic Qualifiers: Esophagitis presence: without esophagitis Qualified Code(s): K21.9 - Gastro-esophageal reflux disease without esophagitis Plan to address problem: Continue PPIs (5) Hypertension Current Visit: No Status: Chronic Qualifiers: Hypertension type: essential hypertension Qualified Code(s): I10 - Essential (primary) hypertension Plan to address problem: Continue antihypertensives (6) DVT prophylaxis Current Visit: No Status: Acute Plan to address problem: On heparin drip and GI prophylaxis (7) CHELLY (acute kidney injury) Current Visit: Yes Status: Acute Plan to address problem: Secondary to volume depletion Vasomotor nephropathy IV fluids for now Monitor BMP
[2018-06-09] MEDS ORDERED: NON-FORMULARY (Losartan [Cozaar] 100 MG) PO SCH (21:15)
[2018-06-09] MEDS ORDERED: ZOFRAN IV PRN (21:22)
[2018-06-09] MEDS ORDERED: SODIUM CHLORIDE FLUSH SYRINGE 10 ML IV PRN (21:22)
[2018-06-09] MEDS ORDERED: TYLENOL PO PRN (21:22)
[2018-06-09] MEDS ORDERED: PERCOCET 5/325 PO PRN (21:23)
[2018-06-09] MEDS ORDERED: HEPARIN 10,000 UNITS/10 ML IV ONE (21:28)
[2018-06-09] MEDS: NORVASC PO SCH (21:38)
[2018-06-09] MEDS: COZAAR PO SCH (21:39)
[2018-06-09] MEDS: PROTONIX PO SCH (21:40)
[2018-06-09] MEDS ORDERED: D5/0.45NS 1,000 ML IV SCH (22:00)
[2018-06-09 22:19] LABS: INR 1.16 (0.87-1.13)
[2018-06-09] MEDS: SODIUM CHLORIDE FLUSH SYRINGE 10 ML IV SCH (22:46)
[2018-06-10] MEDS: HEPARIN/ 0.45% NACL-25,000 UNIT/500 ML 25,000 UNIT/500 ML BAG IV SCH (00:01)
[2018-06-10] MEDS: CARDIZEM 100 MG in D5W 80 ML IV SCH (06:38)
[2018-06-10 06:53] LABS: Hematocrit 42.3 % (30.3-42.9); Hemoglobin 14.1 gm/dl (10.1-14.3); Mean Corpuscular HGB Conc 33 % (30-34); Mean Corpuscular Volume 90 fl (79-97); Mean Platelet Volume 7.9 fl (6-12); Platelet Count 195 K/mm3 (140-440); Red Blood Count 4.68 M/mm3 (3.65-5.03); Red Cell Distribution Width 15.1 % (13.2-15.2)
[2018-06-10 07:04] LABS: Calcium 8.5 mg/dL (8.4-10.2)
[2018-06-10] MEDS: NORVASC PO SCH (10:38)
[2018-06-10] MEDS: COZAAR PO SCH (10:38)
[2018-06-10] MEDS: PROTONIX PO SCH (10:38)
[2018-06-10] MEDS: SODIUM CHLORIDE FLUSH SYRINGE 10 ML IV SCH ×2 (10:39→22:07)
--- NOTE | 2018-06-10 10:49 | Consultation ---
History of Present Illness Consult date: 06/10/18 Consult reason: atrial fibrillation History of present illness: Patient is a 47 year old woman who is usually followed with the [facility]. She gives a long standing history of paroxysmal atrial fibrillation, not on oral anticoagulation therapy for unknown reasons. Patient reports 3 months ago she was treated with Xarelto but this was discontinued, 1 week later, by her sheet metal assembler and riveter. She denies prior GI bleed. She has a history of migraine, hypertension and a remote history of pharyngeal carcinoma s/p chemo and radiation therapy. She presented with complains of migraines found with rapid atrial flutter thus this cardiac consultation. She was treated with intravenous Diltiazem and initiated on Diltiazem drip. Patient denies chest pain, unusual shortness of breath and palpitations. A chest x-ray reports cardiomegaly but no evidence of heart failure. Initial labs revealed acute renal failure and an elevated d-dimer. Further evaluation with a chest CTA revealed acute pulmonary embolus. Patient was initiated on IV heparin drip. Medications and Allergies Allergies Allergy/AdvReac Type Severity Reaction Status Date / Time fluticasone [From Flonase] Allergy Unknown Verified 02/25/17 12:39 prochlorperazine Allergy Unknown Verified 02/25/17 12:39 [From Compazine] Home Medications Medication Instructions Recorded Confirmed Last Taken Type Amlodipine Besylate [Norvasc] 10 mg PO QDAY 02/25/17 06/09/18 06/09/18 History Losartan [Cozaar] 100 mg PO QDAY 02/25/17 06/09/18 06/09/18 History Pantoprazole [Protonix TAB] 40 mg PO QDAY #30 tablet 02/26/17 06/09/18 Unknown Rx Active Meds: Active Medications Acetaminophen (Tylenol) 650 mg PO Q4H PRN PRN Reason: Pain MILD(1-3)/Fever >100.5/THOMAS Last Admin: 06/10/18 00:12 Dose: 650 mg Documented by: Amlodipine Besylate (Norvasc) 10 mg PO QDAY ERIC Last Admin: 06/10/18 10:38 Dose: 10 mg Documented by: Hydromorphone HCl (Dilaudid) 0.5 mg IV Q3H PRN PRN Reason: Pain , Severe (7-10) Last Admin: 06/09/18 21:37 Dose: 0.5 mg Documented by: Diltiazem HCl 100 mg/ Dextrose 100 mls @ 5 mls/hr IV DIRECT ERIC; Protocol Last Admin: 06/10/18 06:38 Dose: 5 mg/hr, 5 mls/hr Documented by: Dextrose/Sodium Chloride (D5/0.45ns) 1,000 mls @ 75 mls/hr IV DIRECT ERIC Stop: 06/10/18 15:00 Last Admin: 06/09/18 22:46 Dose: 75 mls/hr Documented by: Heparin Sodium/Sodium Chloride (Heparin/ 0.45% Nacl-25,000 Unit/500 Ml) 25,000 unit in 500 mls @ 18 mls/hr IV TITR ERIC; Protocol Last Titration: 06/10/18 07:57 Dose: 850 units/hr, 17 mls/hr Documented by: Losartan Potassium (Cozaar) 100 mg PO QDAY [facility] Last Admin: 06/10/18 10:38 Dose: 100 mg Documented by: Ondansetron HCl (Zofran) 4 mg IV Q8H PRN PRN Reason: Nausea And Vomiting Last Admin: 06/09/18 22:45 Dose: 4 mg Documented by: Oxycodone/Acetaminophen (Percocet 5/325) 1 tab PO Q6H PRN PRN Reason: Pain, Moderate (4-6) Pantoprazole Sodium (Protonix) 40 mg PO QDAY [facility] Last Admin: 06/10/18 10:38 Dose: 40 mg Documented by: Sodium Chloride (Sodium Chloride Flush Syringe 10 Ml) 10 ml IV BID [facility] Last Admin: 06/10/18 10:39 Dose: Not Given Documented by: Sodium Chloride (Sodium Chloride Flush Syringe 10 Ml) 10 ml IV PRN PRN PRN Reason: LINE FLUSH Physical Examination Vital Signs Temp Pulse Resp BP Pulse Ox 97.7 F 180 H 19 160/138 100 06/09/18 11:55 06/09/18 11:55 06/09/18 11:55 06/09/18 11:55 06/09/18 11:55 General appearance: no acute distress HEENT: Positive: PERRL Cardiac: Positive: irregularly irregular Lungs: Positive: Decreased Breath Sounds Neuro: Positive: Grossly Intact Extremities: Absent: edema Results 06/10/18 05:55 06/10/18 05:55 Cardiac Enzymes 06/10/18 Range/Units 05:55 AST 22 (5-40) units/L Coagulation 06/09/18 06/09/18 Range/Units 12:17 21:53 PT 13.5 15.5 H (12.2-14.9) Sec. INR 0.97 1.16 H (0.87-1.13) APTT 28.3 28.0 (24.2-36.6) Sec. CBC 06/09/18 06/09/18 06/10/18 Range/Units 12:16 21:53 05:55 WBC 8.4 8.6 (4.5-11.0) K/mm3 RBC 5.63 H 4.68 (3.65-5.03) M/mm3 Hgb 16.7 H 14.0 14.1 (10.1-14.3) gm/dl Hct 50.8 H 42.0 D 42.3 (30.3-42.9) % Plt Count 252 199 195 (140-440) K/mm3 Lymph # 3.2 (1.2-5.4) K/mm3 [place] # 0.7 (0.0-0.8) K/mm3 Eos # 0.0 (0.0-0.4) K/mm3 Baso # 0.1 (0.0-0.1) K/mm3 Comprehensive Metabolic Panel 06/09/18 06/10/18 Range/Units 12:17 05:55 Sodium 138 139 (137-145) mmol/L Potassium 4.0 4.2 (3.6-5.0) mmol/L Chloride 96.4 L 99.1 (98-107) mmol/L Carbon Dioxide 22 27 (22-30) mmol/L BUN 24 H 15 (7-17) mg/dL Creatinine 1.7 H 1.4 H (0.7-1.2) mg/dL Glucose 116 H 99 (65-100) mg/dL Calcium 9.9 8.5 (8.4-10.2) mg/dL AST 22 (5-40) units/L ALT 15 (7-56) units/L Alkaline Phosphatase 39 (35-129) units/L Total Protein 6.5 (6.3-8.2) g/dL Albumin 4.0 (3.9-5) g/dL Assessment and Plan Acute Pulmonary embolus on IV heparin Paroxysmal Atrial fib/flutter per pt on IV diltiazem for rate control Migraine Hypertension Remote hx of Pharyngeal Ca
--- NOTE | 2018-06-10 10:56 | Vascular Lab Report ---
PROCEDURE: VL VENOUS DUPLEX LE BILAT TECHNIQUE: Grayscale, color flow and spectral waveform images were obtained of bilateral lower extre mities. HISTORY: active pe on heparin gtt COMPARISON: None FINDINGS: There is no deep venous thrombosis seen in the left or right lower extremity. Flow is demonstrated by color flow and spectral waveform imaging. There is appropriate wall compression and augmentation. There is also no superficial venous thrombus seen. IMPRESSION: There is no evidence for DVT in either right or left lower extremity. This document is electronically signed by Bhumi Reza MD., June 10 2018 10:54:09 AM ET
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
[2018-06-10 13:42] LABS: Eosinophils % (Manual) 0 % (0.0-4.3); Total Cells Counted 100
[2018-06-10 13:43] LABS: Platelet Estimate Consistent w Auto; RBC Morphology Normal
--- NOTE | 2018-06-10 16:51 | Consultation ---
History of Present Illness - Reason for Consult Consult date: 06/10/18 Pulmonary embolism - History of Present Illness 47-year-old female with history of hypertension, GERD and atrial fibrillation presents with feeling weak and palpitations. No chest pain. Some shortness of breath. Patient not taking any blood thinners for atrial fibrillation. The patient has history of pharyngeal cancer in 1991 and was treated with chemotherapy and radiation therapy. In remission for the last 17 years. No precipitating or exacerbating factors. Shortness of breath on exertion present. No recent travel. No fever or chills. Consulted for CTA demonstrating right sided pulmonary embolism. Patient reports she came to the hospital with a severe headache that prevented her from catching her breath. Her headache has resolved. Her SOB has resolved per patient. She has ambulated without SOB. Not on supplementary oxygen. Feels fine. Past History Past Medical History: GERD, hypertension, other (LVH) Past Surgical History: No surgical history Social history: no significant social history Family history: no significant family history Medications and Allergies Allergies Allergy/AdvReac Type Severity Reaction Status Date / Time fluticasone [From Flonase] Allergy Unknown Verified 02/25/17 12:39 prochlorperazine Allergy Unknown Verified 02/25/17 12:39 [From Compazine] Home Medications Medication Instructions Recorded Confirmed Last Taken Type Amlodipine Besylate [Norvasc] 10 mg PO QDAY 02/25/17 06/09/18 06/09/18 History Losartan [Cozaar] 100 mg PO QDAY 02/25/17 06/09/18 06/09/18 History Pantoprazole [Protonix TAB] 40 mg PO QDAY #30 tablet 02/26/17 06/09/18 Unknown Rx Active Meds: Active Medications Acetaminophen (Tylenol) 650 mg PO Q4H PRN PRN Reason: Pain MILD(1-3)/Fever >100.5/THOMAS Last Admin: 06/10/18 00:12 Dose: 650 mg Documented by: Amlodipine Besylate (Norvasc) 10 mg PO QDAY ERIC Last Admin: 06/10/18 10:38 Dose: 10 mg Documented by: Hydromorphone HCl (Dilaudid) 0.5 mg IV Q3H PRN PRN Reason: Pain , Severe (7-10) Last Admin: 06/09/18 21:37 Dose: 0.5 mg Documented by: Diltiazem HCl 100 mg/ Dextrose 100 mls @ 5 mls/hr IV DIRECT ERIC; Protocol Last Admin: 06/10/18 06:38 Dose: 5 mg/hr, 5 mls/hr Documented by: Heparin Sodium/Sodium Chloride (Heparin/ 0.45% Nacl-25,000 Unit/500 Ml) 25,000 unit in 500 mls @ 18 mls/hr IV TITR ERIC; Protocol Last Titration: 06/10/18 14:36 Dose: 800 units/hr, 16 mls/hr Documented by: Losartan Potassium (Cozaar) 100 mg PO QDAY [facility] Last Admin: 06/10/18 10:38 Dose: 100 mg Documented by: Ondansetron HCl (Zofran) 4 mg IV Q8H PRN PRN Reason: Nausea And Vomiting Last Admin: 06/09/18 22:45 Dose: 4 mg Documented by: Oxycodone/Acetaminophen (Percocet 5/325) 1 tab PO Q6H PRN PRN Reason: Pain, Moderate (4-6) Pantoprazole Sodium (Protonix) 40 mg PO QDAY [facility] Last Admin: 06/10/18 10:38 Dose: 40 mg Documented by: Sodium Chloride (Sodium Chloride Flush Syringe 10 Ml) 10 ml IV BID [facility] Last Admin: 06/10/18 10:39 Dose: Not Given Documented by: Sodium Chloride (Sodium Chloride Flush Syringe 10 Ml) 10 ml IV PRN PRN PRN Reason: LINE FLUSH Review of Systems All systems: negative (see HPI) Exam - Constitutional Vitals: Temp Pulse Resp BP Pulse Ox 98.3 F 105 H 16 119/86 98 06/10/18 12:43 06/10/18 12:43 06/10/18 12:43 06/10/18 12:43 06/10/18 12:43 General appearance: Present: no acute distress - EENT Eyes: Present: EOM intact ENT: hearing intact - Respiratory Respiratory effort: normal - Extremities Extremities: No edema, normal temperature, normal color - Abdominal General gastrointestinal: Present: soft, non-tender - Psychiatric Psychiatric: appropriate mood/affect, cooperative - Neurologic Neurologic: moves all extremities, other (no focal deficits) Results - Labs CBC & Chem 7: 06/10/18 05:55 06/10/18 05:55 Labs: Abnormal lab results 06/09/18 06/10/18 06/10/18 Range/Units 21:53 05:55 05:55 PT 15.5 H (12.2-14.9) Sec. INR 1.16 H (0.87-1.13) Heparin Anti-Xa Level 0.82 H (0.3-0.7) U.I./ml Creatinine 1.4 H (0.7-1.2) mg/dL 06/10/18 Range/Units 13:36 PT (12.2-14.9) Sec. INR (0.87-1.13) Heparin Anti-Xa Level 0.72 H (0.3-0.7) U.I./ml Creatinine (0.7-1.2) mg/dL - Imaging and Cardiology CT scan - chest: report reviewed, image reviewed Assessment and Plan 47 year old female admitted for headache with shortness of breath and cardiac issues who also had right sided pulmonary embolism on CT. No supplementary oxygen. No right sided strain on CT scan or echocardiography. BNP elevated. DVT study negative. 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 She had abdominal pain at that time, which she does not have now. Patient will need lifelong anticoagulation for atrial fibrillation and for 2 thromboembolic events. Recommend DOAC (Eliquis or Xarelto). No need for vascular intervention.
[2018-06-11] MEDS: CARDIZEM 100 MG in D5W 80 ML IV SCH (02:06)
[2018-06-11 06:21] LABS: Hematocrit 42.8 % (30.3-42.9)
[2018-06-11] MEDS: HEPARIN/ 0.45% NACL-25,000 UNIT/500 ML 25,000 UNIT/500 ML BAG IV SCH (07:05)
[2018-06-11] MEDS: NORVASC PO SCH (09:24)
[2018-06-11] MEDS: PROTONIX PO SCH (09:24)
[2018-06-11] MEDS: COZAAR PO SCH (09:25)
[2018-06-11] MEDS: SODIUM CHLORIDE FLUSH SYRINGE 10 ML IV SCH ×2 (09:26→22:27)
--- NOTE | 2018-06-11 09:48 | Progress Note ---
Assessment and Plan Acute Pulmonary embolus on IV heparin Persistent Atrial fib/flutter on IV diltiazem for rate control Migraine Hypertension Remote hx of Pharyngeal Ca An echocardiogram this admission reveals a sinus venosus atrial septal defect. In addition, there is a dilated left and right atria with a decreased left ventricular systolic function, ejection fraction 35-40%. Normal Lexiscan thallium stress test in February 2017. Recommendations: Anticoagulation management of presenting acute pulmonary embolism as recommended by internal medicine and pulmonology. Optimal rate control of atrial fibrillation. We will transition to oral diltiazem. We will request patient's medical records from the [facility] for further clarification of prior cardiac evaluation and management. Subjective Date of service: 06/11/18 Interval history: Patient has no complaints. Objective Vital Signs Temp Pulse Resp BP BP Pulse Ox 06/11/18 09:25 87 128/96 06/11/18 09:24 87 128/96 06/11/18 08:21 98.3 F 86 18 122/83 98 06/11/18 08:17 16 06/11/18 03:47 98.0 F 83 18 120/85 96 06/10/18 23:57 98.3 F 79 18 117/72 96 06/10/18 19:39 98.1 F 95 H 18 118/78 98 06/10/18 17:30 98.4 F 102 H 16 131/83 100 06/10/18 12:43 98.3 F 105 H 16 119/86 98 06/10/18 10:38 77 123/90 - Physical Examination General: No Apparent Distress HEENT: Positive: PERRL Cardiac: Positive: irregularly irregular Lungs: Positive: Decreased Breath Sounds Neuro: Positive: Grossly Intact Extremities: Absent: edema - Labs and Meds CBC 06/11/18 Range/Units 05:23 Hgb 14.0 (10.1-14.3) gm/dl Hct 42.8 (30.3-42.9) % Plt Count 185 (140-440) K/mm3
--- NOTE | 2018-06-11 11:00 | Progress Note ---
Assessment and Plan Assessment and plan: Assessment and plan: 47-year-old female with history of hypertension, GERD and atrial fibrillation not rate controlled / non compliant with oral anticoagulation therapy that presented to [facility] ED on 06/09 with c/o feeling weak, migraines and palpitations. 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 In remission for the last 17 years. CTA revealed acute pulmonary embolus, and she was placed on heparin gtt. She was found with rapid atrial fibrillation and treated with with intravenous Diltiazem and initiated on Diltiazem drip. Cardiology has been consulted. Pulmonary embolism On IV heparin gtt, DC heparin drip per protocol and start with pm dose of Eliquis Shaheen lower extremity Doppler shows no evidence of DVT Vascular surgery ,no EKOS needed,hemat consult and supportive care Atrial fibrillation with RVR On IV Cardizem drip, which totals Cardizem Follow Echo ,cardiology evaluated the patient Hypertension Moderate control, Continue antihypertensive medications: Norvasc 10 mg daily, losartan 100 mg daily Polycythemia- likely secondary to decrease in plasma volume Continue D5 1/2 NS @ 75ml/hr History of GERD On Protonix DVT PPX on Eliquis. Monitor the patient closely and adjust the management as needed Follow-up consultants evaluations and recommendations Plan of care reviewed with the patient and her nurse Possible discharge in 1-2 days if stable History Interval history: Patient was examined in medical records reviewed Patient was admitted with headache and right PE On heparin drip, evaluated by interventional radiologist, no EKOS needed Advised to start oral anticoagulants Patient feels better denies chest pain or shortness of breath Vital signs reviewed Hospitalist Physical - Constitutional Vitals: Temp Pulse Resp BP Pulse Ox 98.3 F 87 18 128/96 98 06/11/18 08:21 06/11/18 09:25 06/11/18 08:21 06/11/18 09:25 06/11/18 08:21 General appearance: Present: no acute distress, well-nourished, cachectic - EENT Eyes: Present: PERRL, EOM intact - Neck Neck: Present: supple, normal ROM - Respiratory Respiratory effort: normal Respiratory: bilateral: diminished, rhonchi, negative: rales, wheezing - Cardiovascular Rhythm: regular Heart Sounds: Present: S1 & S2 - Extremities Extremities: no ischemia, No edema - Abdominal General gastrointestinal: soft, non-tender, non-distended, normal bowel sounds - Integumentary Integumentary: Present: clear, warm - Psychiatric Psychiatric: appropriate mood/affect, cooperative - Neurologic Neurologic: CNII-XII intact, moves all extremities Results - Labs CBC & Chem 7: 06/11/18 05:23 06/10/18 05:55 Labs: Laboratory Last Values WBC 8.6 K/mm3 (4.5-11.0) 06/10/18 05:55 RBC 4.68 M/mm3 (3.65-5.03) 06/10/18 05:55 Hgb 14.0 gm/dl (10.1-14.3) 06/11/18 05:23 Hct 42.8 % (30.3-42.9) 06/11/18 05:23 MCV 90 fl (79-97) 06/10/18 05:55 MCH 30 pg (28-32) 06/10/18 05:55 MCHC 33 % (30-34) 06/10/18 05:55 RDW 15.1 % (13.2-15.2) 06/10/18 05:55 Plt Count 185 K/mm3 (140-440) 06/11/18 05:23 Lymph % (Auto) 37.9 % (13.4-35.0) H 06/09/18 12:16 [place] % (Auto) 7.9 % (0.0-7.3) H 06/09/18 12:16 Eos % (Auto) 0.5 % (0.0-4.3) 06/09/18 12:16 Baso % (Auto) 0.7 % (0.0-1.8) 06/09/18 12:16 Lymph # 3.2 K/mm3 (1.2-5.4) 06/09/18 12:16 [place] # 0.7 K/mm3 (0.0-0.8) 06/09/18 12:16 Eos # 0.0 K/mm3 (0.0-0.4) 06/09/18 12:16 Baso # 0.1 K/mm3 (0.0-0.1) 06/09/18 12:16 Add Manual Diff Complete 06/10/18 05:55 Total Counted 100 06/10/18 05:55 Seg Neutrophils % 53.0 % (40.0-70.0) 06/09/18 12:16 Seg Neuts % (Manual) 67.0 % (40.0-70.0) 06/10/18 05:55 Band Neutrophils % 0 % 06/10/18 05:55 Lymphocytes % (Manual) 28.0 % (13.4-35.0) 06/10/18 05:55 Reactive Lymphs % (Man) 0 % 06/10/18 05:55 Monocytes % (Manual) 4.0 % (0.0-7.3) 06/10/18 05:55 Eosinophils % (Manual) 0 % (0.0-4.3) 06/10/18 05:55 Basophils % (Manual) 1.0 % (0.0-1.8) 06/10/18 05:55 Metamyelocytes % 0 % 06/10/18 05:55 Myelocytes % 0 % 06/10/18 05:55 Promyelocytes % 0 % 06/10/18 05:55 Blast Cells % 0 % 06/10/18 05:55 Nucleated RBC % Not Reportable 06/10/18 05:55 Seg Neutrophils # 4.5 K/mm3 (1.8-7.7) 06/09/18 12:16 Seg Neutrophils # Man 5.8 K/mm3 (1.8-7.7) 06/10/18 05:55 Band Neutrophils # 0.0 K/mm3 06/10/18 05:55 Lymphocytes # (Manual) 2.4 K/mm3 (1.2-5.4) 06/10/18 05:55 Abs React Lymphs (Man) 0.0 K/mm3 06/10/18 05:55 Monocytes # (Manual) 0.3 K/mm3 (0.0-0.8) 06/10/18 05:55 Eosinophils # (Manual) 0.0 K/mm3 (0.0-0.4) 06/10/18 05:55 Basophils # (Manual) 0.1 K/mm3 (0.0-0.1) 06/10/18 05:55 Metamyelocytes # 0.0 K/mm3 06/10/18 05:55 Myelocytes # 0.0 K/mm3 06/10/18 05:55 Promyelocytes # 0.0 K/mm3 06/10/18 05:55 Blast Cells # 0.0 K/mm3 06/10/18 05:55 WBC Morphology Not Reportable 06/10/18 05:55 Hypersegmented Neuts Not Reportable 06/10/18 05:55 Hyposegmented Neuts Not Reportable 06/10/18 05:55 Hypogranular Neuts Not Reportable 06/10/18 05:55 Smudge Cells Not Reportable 06/10/18 05:55 Toxic Granulation Not Reportable 06/10/18 05:55 Toxic Vacuolation Not Reportable 06/10/18 05:55 Dohle Bodies Not Reportable 06/10/18 05:55 Pelger-Huet Anomaly Not Reportable 06/10/18 05:55 Yariel Rods Not Reportable 06/10/18 05:55 Platelet Estimate Consistent w auto 06/10/18 05:55 Clumped Platelets Not Reportable 06/10/18 05:55 Plt Clumps, EDTA Not Reportable 06/10/18 05:55 Large Platelets Not Reportable 06/10/18 05:55 Giant Platelets Not Reportable 06/10/18 05:55 Platelet Satelliting Not Reportable 06/10/18 05:55 Plt Morphology Comment Not Reportable 06/10/18 05:55 RBC Morphology Normal 06/10/18 05:55 Dimorphic RBCs Not Reportable 06/10/18 05:55 Polychromasia Not Reportable 06/10/18 05:55 Hypochromasia Not Reportable 06/10/18 05:55 Poikilocytosis Not Reportable 06/10/18 05:55 Anisocytosis Not Reportable 06/10/18 05:55 Microcytosis Not Reportable 06/10/18 05:55 Macrocytosis Not Reportable 06/10/18 05:55 Spherocytes Not Reportable 06/10/18 05:55 Pappenheimer Bodies Not Reportable 06/10/18 05:55 Sickle Cells Not Reportable 06/10/18 05:55 Target Cells Not Reportable 06/10/18 05:55 Tear Drop Cells Not Reportable 06/10/18 05:55 Ovalocytes Not Reportable 06/10/18 05:55 Helmet Cells Not Reportable 06/10/18 05:55 [place] Bodies Not Reportable 06/10/18 05:55 [place] Rings Not Reportable 06/10/18 05:55 Ryan Cells Not Reportable 06/10/18 05:55 Bite Cells Not Reportable 06/10/18 05:55 Crenated Cell Not Reportable 06/10/18 05:55 Elliptocytes Not Reportable 06/10/18 05:55 Acanthocytes (Spur) Not Reportable 06/10/18 05:55 Rouleaux Not Reportable 06/10/18 05:55 Hemoglobin C Crystals Not Reportable 06/10/18 05:55 Schistocytes Not Reportable 06/10/18 05:55 Malaria parasites Not Reportable 06/10/18 05:55 Festus Bodies Not Reportable 06/10/18 05:55 Hem Pathologist Commnt No 06/10/18 05:55 PT 15.5 Sec. (12.2-14.9) H 06/09/18 21:53 INR 1.16 (0.87-1.13) H 06/09/18 21:53 APTT 28.0 Sec. (24.2-36.6) 06/09/18 21:53 D-Dimer 1625.35 ng/mlDDU (0-234) H 06/09/18 12:17 Heparin Anti-Xa Level 0.66 U.I./ml (0.3-0.7) 06/10/18 20:23 Sodium 139 mmol/L (137-145) 06/10/18 05:55 Potassium 4.2 mmol/L (3.6-5.0) 06/10/18 05:55 Chloride 99.1 mmol/L (98-107) 06/10/18 05:55 Carbon Dioxide 27 mmol/L (22-30) 06/10/18 05:55 Anion Gap 17 mmol/L 06/10/18 05:55 BUN 15 mg/dL (7-17) 06/10/18 05:55 Creatinine 1.4 mg/dL (0.7-1.2) H 06/10/18 05:55 Estimated GFR 49 ml/min 06/10/18 05:55 BUN/Creatinine Ratio 11 % 06/10/18 05:55 Glucose 99 mg/dL (65-100) 06/10/18 05:55 Hemoglobin A1c 5.9 % (4-6) 06/09/18 12:16 Calcium 8.5 mg/dL (8.4-10.2) 06/10/18 05:55 Total Bilirubin 0.80 mg/dL (0.1-1.2) 06/10/18 05:55 AST 22 units/L (5-40) 06/10/18 05:55 ALT 15 units/L (7-56) 06/10/18 05:55 Alkaline Phosphatase 39 units/L (35-129) 06/10/18 05:55 Troponin T 0.010 ng/mL (0.00-0.029) 06/09/18 18:24 Total Protein 6.5 g/dL (6.3-8.2) 06/10/18 05:55 Albumin 4.0 g/dL (3.9-5) 06/10/18 05:55 Albumin/Globulin Ratio 1.6 % 06/10/18 05:55 Active Medications - Current Medications Current Medications: Generic Name Dose Route Start Last Admin Trade Name Freq PRN Reason Stop Dose Admin Acetaminophen 650 mg 06/09/18 21:22 06/10/18 00:12 Tylenol PO 650 mg Q4H PRN Administration Pain MILD(1-3)/Fever >100.5/THOMAS Amlodipine Besylate 10 mg 06/09/18 22:00 06/11/18 09:24 Norvasc PO 10 mg QDAY ERIC Administration Diltiazem HCl 30 mg 06/11/18 12:00 Cardizem PO Q6HR ERIC Hydromorphone HCl 0.5 mg 06/09/18 20:52 06/09/18 21:37 Dilaudid IV 0.5 mg Q3H PRN Administration Pain , Severe (7-10) Diltiazem HCl 100 mg/ Dextrose 100 mls @ 5 mls/hr 06/09/18 13:00 06/11/18 02:06 IV 5 mg/hr DIRECT ERIC 5 mls/hr Administration Protocol 5 MG/HR Heparin Sodium/Sodium Chloride 25,000 unit in 500 mls @ 18 mls/hr 06/09/18 22:00 06/11/18 07:05 Heparin/ 0.45% Nacl-25,000 Unit/500 Ml IV 800 units/hr TITR ERIC 16 mls/hr Administration Protocol 900 UNITS/HR Losartan Potassium 100 mg 06/09/18 22:00 06/11/18 09:25 Cozaar PO 100 mg QDAY ERIC Administration Ondansetron HCl 4 mg 06/09/18 21:22 06/09/18 22:45 Zofran IV 4 mg Q8H PRN Administration Nausea And Vomiting Oxycodone/Acetaminophen 1 tab 06/09/18 21:23 Percocet 5/325 PO Q6H PRN Pain, Moderate (4-6) Pantoprazole Sodium 40 mg 06/09/18 22:00 06/11/18 09:24 Protonix PO 40 mg QDAY ERIC Administration Sodium Chloride 10 ml 06/09/18 22:00 06/11/18 09:26 Sodium Chloride Flush Syringe 10 Ml IV 10 ml BID ERIC Administration Sodium Chloride 10 ml 06/09/18 21:22 Sodium Chloride Flush Syringe 10 Ml IV PRN PRN LINE FLUSH
[2018-06-11] MEDS ORDERED: CARDIZEM PO SCH (12:00)
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
[2018-06-11] MEDS: COREG PO SCH ×2 (12:41→22:27)
[2018-06-11] MEDS: ALDACTONE PO SCH (12:41)
[2018-06-11] MEDS: CARDIZEM CD PO SCH (12:41)
[2018-06-11] MEDS: THALITONE PO SCH (13:00)
[2018-06-11] MEDS: ELIQUIS PO SCH (22:27)
[2018-06-12 06:37] LABS: Basophils % (Auto) 0.7 % (0.0-1.8); Eosinophils # (Auto) 0.1 K/mm3 (0.0-0.4); Eosinophils % (Auto) 2.1 % (0.0-4.3); Hematocrit 44.2 % (30.3-42.9); Hemoglobin 14.3 gm/dl (10.1-14.3); Lymphocytes # (Auto) 2.2 K/mm3 (1.2-5.4); Lymphocytes % (Auto) 35.3 % (13.4-35.0); Mean Corpuscular HGB Conc 32 % (30-34); Mean Corpuscular Volume 91 fl (79-97); Monocytes # (Auto) 0.5 K/mm3 (0.0-0.8); Monocytes % (Auto) 8.5 % (0.0-7.3); Platelet Count 216 K/mm3 (140-440); Red Blood Count 4.86 M/mm3 (3.65-5.03); Red Cell Distribution Width 15.4 % (13.2-15.2)
[2018-06-12 07:01] LABS: Calcium 8.7 mg/dL (8.4-10.2)
--- NOTE | 2018-06-12 09:24 | Event Note ---
Date: 06/11/18 PE - incidental on anticoag eliquis and OP follow up dictation
--- NOTE | 2018-06-12 09:38 | Hem/Onc Progress Note ---
Assessment and Plan 1. Pulmonary embolism. 2. The patient is on anticoagulation at IV. oral Eliquis. 3. There is a mention of history of pharyngeal cancer - 1991. - in [place] - cisplatin and ~ 5 weeks of XRT. 4. History of atrial fibrillation. 5. History of hypertension. 6. Gastroesophageal reflux disease. 7. At admission, hemoglobin and hematocrit was high at 16 and 50. This may be hemoconcentration. We will follow the patient during inpatient stay. OP follow up an option - Patient Problems (1) Pulmonary embolism Status: Acute Qualifiers: Chronicity: acute Acute cor pulmonale presence: without acute cor pulmonale Subjective Date of service: 06/12/18 Principal diagnosis: PE Interval history: feeling better - ambulating Objective - Constitutional Vitals: Last Vital Signs Temp 97.9 F 06/12/18 08:01 Pulse 77 06/12/18 08:01 Resp 16 06/12/18 08:03 BP 119/90 06/12/18 08:01 Pulse Ox 100 06/12/18 08:01 Pain Intensity (0-10): denies any pain General appearance: no acute distress Performance status: 2- selfcare, ambulatory - EENT Eyes: EOM intact ENT: hearing intact, clear oral mucosa Lymph node exam: negative cervical - Neck Neck: normal ROM - Respiratory Respiratory effort: Positive: normal Respiratory: bilateral: CTA - Cardiovascular Heart Sounds: Present: S1 & S2 Extremities: No edema - Gastrointestinal General gastrointestinal: Present: soft, non-tender Rectal Exam: deferred - Genitourinary Female genitourinary: Present: deferred - Integumentary Integumentary: warm - Musculoskeletal Musculoskeletal: strength equal bilaterally - Neurologic Neurologic: moves all extremities - Labs Lab Results: Laboratory Results - last 24 hr 06/12/18 06/12/18 05:52 05:52 WBC 6.1 RBC 4.86 Hgb 14.3 Hct 44.2 H MCV 91 MCH 30 MCHC 32 RDW 15.4 H Plt Count 216 Lymph % (Auto) 35.3 H [place] % (Auto) 8.5 H Eos % (Auto) 2.1 Baso % (Auto) 0.7 Lymph # 2.2 [place] # 0.5 Eos # 0.1 Baso # 0.0 Seg Neutrophils % 53.4 Seg Neutrophils # 3.3 Sodium 138 Potassium 4.5 Chloride 101.0 Carbon Dioxide 28 Anion Gap 14 BUN 13 Creatinine 1.3 H Estimated GFR 53 BUN/Creatinine Ratio 10 Glucose 111 H Calcium 8.7 Medications & Allergies - Medications Allergies/Adverse Reactions: Allergies fluticasone [From Flonase] Allergy (Verified 02/25/17 12:39) Unknown prochlorperazine [From Compazine] Allergy (Verified 02/25/17 12:39) Unknown Home Medications: Home Medications Medication Instructions Recorded Confirmed Last Taken Type Pantoprazole [Protonix TAB] 40 mg PO QDAY #30 tablet 02/26/17 06/09/18 Unknown Rx Acetaminophen [Acetaminophen TAB] 650 mg PO Q4H PRN #15 tablet 06/12/18 Unknown Rx Apixaban [Eliquis] 5 mg PO Q12H #60 tablet 06/12/18 Unknown Rx Apixaban [Eliquis] 10 mg PO Q12HR #10 tablet 06/12/18 Unknown Rx Carvedilol [Coreg] 3.125 mg PO BID #60 tablet 06/12/18 Unknown Rx Chlorthalidone [Thalitone] 25 mg PO QDAY #30 tablet 06/12/18 Unknown Rx Losartan [Cozaar] 100 mg PO QDAY #30 tab 06/12/18 06/09/18 06/09/18 Rx Spironolactone [Aldactone] 12.5 mg PO QDAY #30 tablet 06/12/18 Unknown Rx dilTIAZem CD [Cardizem CD] 180 mg PO QDAY #30 capsule 06/12/18 Unknown Rx Active Medications: Generic Name Dose Route Start Last Admin Trade Name Freq PRN Reason Stop Dose Admin Acetaminophen 650 mg 06/09/18 21:22 06/10/18 00:12 Tylenol PO 650 mg Q4H PRN Administration Pain MILD(1-3)/Fever >100.5/THOMAS Apixaban 10 mg 06/11/18 22:00 06/11/18 22:27 Eliquis PO 06/18/18 10:01 10 mg Q12HR ERIC Administration Protocol Carvedilol 3.125 mg 06/11/18 12:00 06/11/18 22:27 Coreg PO 3.125 mg BID ERIC Administration Chlorthalidone 25 mg 06/11/18 12:00 06/11/18 13:00 Thalitone PO 25 mg QDAY ERIC Administration Diltiazem HCl 180 mg 06/11/18 12:00 06/11/18 12:41 Cardizem Cd PO 180 mg QDAY ERIC Administration Hydromorphone HCl 0.5 mg 06/09/18 20:52 06/09/18 21:37 Dilaudid IV 0.5 mg Q3H PRN Administration Pain , Severe (7-10) Losartan Potassium 100 mg 06/09/18 22:00 06/11/18 09:25 Cozaar PO 100 mg QDAY ERIC Administration Ondansetron HCl 4 mg 06/09/18 21:22 06/09/18 22:45 Zofran IV 4 mg Q8H PRN Administration Nausea And Vomiting Oxycodone/Acetaminophen 1 tab 06/09/18 21:23 Percocet 5/325 PO Q6H PRN Pain, Moderate (4-6) Pantoprazole Sodium 40 mg 06/09/18 22:00 06/11/18 09:24 Protonix PO 40 mg QDAY ERIC Administration Sodium Chloride 10 ml 06/09/18 22:00 06/11/18 22:27 Sodium Chloride Flush Syringe 10 Ml IV 10 ml BID ERIC Administration Sodium Chloride 10 ml 06/09/18 21:22 Sodium Chloride Flush Syringe 10 Ml IV PRN PRN LINE FLUSH Spironolactone 12.5 mg 06/11/18 12:00 06/11/18 12:41 Aldactone PO 12.5 mg QDAY ERIC Administration
[2018-06-12] MEDS: ELIQUIS PO SCH (10:03)
[2018-06-12] MEDS: ALDACTONE PO SCH (10:04)
[2018-06-12] MEDS: COZAAR PO SCH (10:04)
[2018-06-12] MEDS: THALITONE PO SCH (10:06)
[2018-06-12] MEDS: CARDIZEM CD PO SCH (10:06)
[2018-06-12] MEDS: PROTONIX PO SCH (10:06)
[2018-06-12] MEDS: SODIUM CHLORIDE FLUSH SYRINGE 10 ML IV SCH (10:06)
[2018-06-12] MEDS: COREG PO SCH (10:06)
[2018-06-12 10:10] VITALS: BP 134/93
--- NOTE | 2018-06-12 10:38 | Progress Note ---
Assessment and Plan Acute Pulmonary embolus initiated on eliquis Persistent Atrial fib/flutter on diltiazem and coreg for rate control Migraines Hypertension Remote hx of Pharyngeal Ca An echocardiogram this admission reveals a sinus venosus atrial septal defect. In addition, there is a dilated left and right atria with a decreased left ventricular systolic function, ejection fraction 35-40%. Findings similar to echocardiogram done at the [facility] September 2017. Patient reports she is planned cardiac MRI as an outpatient. Normal Lexiscan thallium stress test in February 2017. Recommend: Optimal rate control and oral anticoagulation for atrial fibrillation and acute PE. Stable cardiac [facility]. Once discharged, patient advised to f/u with her religious healer at the [facility] within 3-5 days. Subjective Date of service: 06/12/18 Interval history: Patient has no complaints. Afib with a well controlled ventricular rate on telemetry. [facility] records reviewed. Objective Vital Signs Temp Pulse Resp BP BP Pulse Ox 06/12/18 10:06 79 134/93 06/12/18 10:04 79 134/93 06/12/18 08:03 16 06/12/18 08:01 97.9 F 77 14 119/90 100 06/12/18 08:00 90 06/12/18 04:27 98.4 F 76 18 115/77 100 06/12/18 00:00 98.2 F 80 18 104/68 98 06/11/18 22:27 101 H 06/11/18 19:51 98.1 F 84 18 136/87 99 06/11/18 16:56 97.9 F 06/11/18 16:54 74 18 124/77 97 06/11/18 12:41 79 114/83 06/11/18 12:13 98.5 F 06/11/18 12:12 87 20 114/83 98 - Physical Examination General: No Apparent Distress HEENT: Positive: PERRL Neck: Positive: trachea midline Cardiac: Positive: irregularly irregular Lungs: Positive: Decreased Breath Sounds Neuro: Positive: Grossly Intact Extremities: Absent: edema - Labs and Meds CBC 06/12/18 Range/Units 05:52 WBC 6.1 (4.5-11.0) K/mm3 RBC 4.86 (3.65-5.03) M/mm3 Hgb 14.3 (10.1-14.3) gm/dl Hct 44.2 H (30.3-42.9) % Plt Count 216 (140-440) K/mm3 Lymph # 2.2 (1.2-5.4) K/mm3 Nelson # 0.5 (0.0-0.8) K/mm3 Eos # 0.1 (0.0-0.4) K/mm3 Baso # 0.0 (0.0-0.1) K/mm3 Comprehensive Metabolic Panel 06/12/18 Range/Units 05:52 Sodium 138 (137-145) mmol/L Potassium 4.5 (3.6-5.0) mmol/L Chloride 101.0 (98-107) mmol/L Carbon Dioxide 28 (22-30) mmol/L BUN 13 (7-17) mg/dL Creatinine 1.3 H (0.7-1.2) mg/dL Glucose 111 H (65-100) mg/dL Calcium 8.7 (8.4-10.2) mg/dL
--- NOTE | 2018-06-12 11:30 | Discharge Summary ---
Providers - Providers Date of Admission: 06/09/18 16:25 Date of discharge: 06/12/18 Attending physician: RUPERT CONWAY 06/09/18 21:27 Consult to Physician [CONS] Routine Comment: Consulting Provider: JUANITA BAUTISTA Physician Instructions: Reason For Exam: Afib with rvr 06/10/18 13:11 Consult to Physician [CONS] Routine Comment: Consulting Provider: JORDIN ALFARO Physician Instructions: Reason For Exam: PE 06/10/18 15:43 Consult to Physician [CONS] Routine Comment: Consulting Provider: DO EGAN Physician Instructions: Reason For Exam: Acute PE 06/11/18 11:53 Consult to Physician [CONS] Routine Comment: Consulting Provider: TRELL ELI Physician Instructions: Reason For Exam: Rt PE Primary care physician: PSYCH COORDINATOR Hospitalization Condition: Stable Hospital course: Patient is 47 yo woman with a history hypertension, GERD and atrial fibrillation not rate controlled / non compliant with oral anticoagulation therapy that presented to [facility] ED on 06/09 with c/o feeling weak, migraines and palpitations. 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 In remission for the last 17 years. CTA revealed acute pulmonary embolus, and she was placed on heparin gtt. She was found with rapid atrial fibrillation and treated with with intravenous Diltiazem and initiated on Diltiazem drip. Cardiology has been consulted. * CTA chest IMPRESSION: Pulmonary embolism and distal right main pulmonary artery extending into right upper lobe pulmonary artery and right descending interlobar artery Right lower lobe peripheral pulmonary embolism * 2D ECHO Conclusions: A diastolic flow in the superior RA suggests a sinus venous atrial septal defect or SVC venous return. If clinically indicated, a ARMEN or contrast bubble study will provide further assessment, left ventricle mildly dilated, est EF 35-40%, moderate to severe concentric LVH, the right and left atria are both moderately to severely dilated, mild MR, mild TR Pulmonary embolism Atrial fibrillation with RVR Hypertension Polycythemia- unlikely secondary to decrease in plasma volume History of GERD On Protonix Secundum ASD, outpatient cardiac MRI at the [place] to evaluate secundum ASD noted on echo DVT PPX Disposition Disposition: TO HOME OR SELFCARE Time spent for discharge: 33 minutes Core Measure Documentation - Palliative Care Palliative Care/ Comfort Measures: Not Applicable - Core Measures Any of the following diagnoses?: DVT/PE - VTE Discharge Requirements Deep Vein Thrombosis/Pulmonary Embolism Present on Admission: Yes Has pt received <5 days of overlap therapy or INR<2.0: No (d/c on Eliquis) Anticoagulant overlap therapy prescribed at discharge: No Contraindication No Overlap Therapy order at DC: Not Indicated Exam - Physical Exam Narrative exam: GEN: WDWN, NAD, Awake, Alert, Orientated HEENT: NCAT, EOMI, PERRL, OP Clear NECK: supple, no adenopathy, no thyromegaly, no JVD CVS/HEART: RRR, normal S1S2, pulses present bilaterally CHEST/LUNGS: CTA B, Symmetrical chest expansion, good air entry bilaterally GI/Abdomen: soft, NTND, good bowel sounds, no guarding or rebound /Bladder: no suprapubic tenderness, no CVA or paraspinal tenderness EXT/Skin: no c/c/e, no obvious rash MSK: FROM x 4 Neuro: CN 2-12 grossly intact, no new focal deficits Psych: calm - Constitutional Vitals: Temp Pulse Resp BP Pulse Ox 97.9 F 79 16 134/93 100 06/12/18 08:01 06/12/18 10:06 06/12/18 08:03 06/12/18 10:06 06/12/18 08:01 Plan Activity: other (no strenous activity) Diet: low salt Follow up with: PRIMARY CARE, [Primary Care Provider] - 3-5 Days Prescriptions: Spironolactone [Aldactone] 12.5 mg PO QDAY #30 tablet dilTIAZem CD [Cardizem CD] 180 mg PO QDAY #30 capsule Carvedilol [Coreg] 3.125 mg PO BID #60 tablet Apixaban [Eliquis] 10 mg PO Q12HR #10 tablet Apixaban [Eliquis] 5 mg PO Q12H #60 tablet Chlorthalidone [Thalitone] 25 mg PO QDAY #30 tablet
--- NOTE | 2018-06-13 01:04 | Consultation ---
REFERRED BY: Abdifatah Herrera MD/Shannan Lo MD REASON FOR CONSULTATION: PE incidental. HISTORY OF PRESENT ILLNESS: I saw the patient, a 47-year-old female with past history of hypertension, GERD, atrial fibrillation. She came to the hospital because of occipital headache. The patient also has a past history of pharyngeal cancer in 1991, was treated with chemotherapy and radiation, in remission. The patient states that the headache was bad. She came to the hospital and was also found to be short of breath, weakness and palpitations. During this admission, CT chest was done. This showed pulmonary embolism in the distal right main pulmonary artery extending into the right upper lobe and right descending interlobar artery, right lower lobe peripheral pulmonary embolism. Leg Doppler was done. This was negative for DVT. I have been asked to evaluate the patient. The patient has been started on anticoagulation. At this time, headache has improved. No chest pain, no shortness of breath, no palpitation, no abdominal pain, no vomiting, no diarrhea, no dysuria. PAST MEDICAL HISTORY: As above. There is mention of pharyngeal cancer, status post chemoradiation, details not clear. SOCIAL HISTORY: Nonsmoker. FAMILY HISTORY: Hypertension. ALLERGIES: FLUTICASONE, PROCHLORPERAZINE. MEDICATIONS: Include Tylenol, Coreg, diltiazem, Dilaudid, losartan. PHYSICAL EXAMINATION: VITAL SIGNS: Temperature 98, pulse 84, respirations 18, BP 136/87. HEENT: No pallor, no icterus. NECK: No neck lymph nodes. HEART: S1, S2. LUNGS: Clear to auscultation. ABDOMEN: Soft. EXTREMITIES: No calf tenderness. NEUROLOGIC: Alert, awake, oriented. LABORATORY DATA: White cell 8.6, hemoglobin 14, MCV 90, platelet 195. Potassium 4.2, creatinine 1.4, bilirubin 0.8. RADIOLOGY: As above. ASSESSMENT: 1. Pulmonary embolism. 2. The patient is on anticoagulation at IV. Plan is to change to oral Eliquis. 3. There is a mention of history of pharyngeal cancer. 1991 - cisplatin + xrt - [place] 4. History of atrial fibrillation. 5. History of hypertension. 6. Gastroesophageal reflux disease. 7. At admission, hemoglobin and hematocrit was high at 16 and 50. This may be hemoconcentration. We will follow the patient during inpatient stay. JOB# [id number] LILLIAN/ANANDA AGUERO
== END 2018-06-12 12:33 | disposition home or self-care (01) | DRG 175 ==
LOC: ED 11:49 → 4A 16:25
PROVIDERS: ADMIT Internal Medicine; ATTEND Internal Medicine
DX: I26.99 Other pulmonary embolism without acute cor pulmonale (principal); N17.0 Acute kidney failure with tubular necrosis; I48.92 Unspecified atrial flutter; Q21.1 Atrial septal defect; I48.2 Chronic atrial fibrillation; I10 Essential (primary) hypertension; K21.9 Gastro-esophageal reflux disease without esophagitis; D75.1 Secondary polycythemia; E86.9 Volume depletion, unspecified; I48.0 Paroxysmal atrial fibrillation; G43.909 Migraine, unspecified, not intractable, without status migrainosus; C14.0 Malignant neoplasm of pharynx, unspecified; Z92.21 Personal history of antineoplastic chemotherapy; Z92.3 Personal history of irradiation; Z82.49 Family history of ischemic heart disease and other diseases of the circulatory system; Z79.899 Other long term (current) drug therapy; Z88.8 Allergy status to other drugs, medicaments and biological substances
CPT/HCPCS: 36415; 70450; 71045; 71275; 80048; 80053; 83036; 84484; 85007; 85014; 85018; 85025; 85049; 85379; 85520; 85610; 85730; 93005; 93010; 93306; 93970; 96374; 96375; G0378; J1170; J1644; J2270; J2405; J7030; Q9967

== ENCOUNTER 2018-08-19 14:57 | Outpatient (CLI) | payer OTHER ==
--- NOTE | 2018-08-19 15:58 | Mammography Report ---
BILATERAL DIGITAL SCREENING MAMMOGRAMS WITH CAD INDICATION: Routine screening. COMPARISONS: None available. However, the patient indicated that she had had a prior mammogram done elsewhere. FINDINGS: Craniocaudal and mediolateral oblique views of both breasts were obtained using 2-D digital acquisition.In addition to standard review, the examination was analyzed for possible abnormalities using a computer-assisted detection device (iCAD). The breast tissue is heterogeneously dense, which may obscure small masses. A left asymmetry on the CC view requires comparison with the prior mammogram or additional imaging. N o architectural distortion or suspicious calcifications. The right breast is negative. IMPRESSION: Comparison with the previous mammogram is required. We will attempt to obtain a prior mammogram for c omparison. If we did not obtain a prior mammogram within 30 days, a revised report will be issued rec ommending a recall for additional imaging. Please be advised that the patient should not schedule an appointment for return until adequate time (at least 2 weeks) has passed breast to obtain the prior m ammogram. BI-RADS CATEGORY 0: INCOMPLETE - NEED ADDITIONAL IMAGING EVALUATION AND/OR PRIOR MAMMOGRAMS FOR COMP ARISON Information is entered into a reminder system for a target due date for the next mammogram. The resul ts and recommendations were sent to the patient by mail. Signer Name: Michael Sofia MD Signed: 08/19/2018 3:54 PM Workstation Name: [id number]
== END 2018-08-19 14:58 | disposition home or self-care (01) ==
LOC: MAMMO 14:57
PROVIDERS: ATTEND Internal Medicine
DX: Z12.31 Encounter for screening mammogram for malignant neoplasm of breast (principal); K21.9 Gastro-esophageal reflux disease without esophagitis; I10 Essential (primary) hypertension
CPT/HCPCS: 77067

== ENCOUNTER 2018-10-07 08:37 | Outpatient (CLI) | payer OTHER ==
--- NOTE | 2018-10-07 09:24 | Mammography Report ---
LEFT DIGITAL DIAGNOSTIC MAMMOGRAM INDICATION: Recall for asymmetry. TECHNIQUE: Digital left mammographic imaging was performed. Spot compression views were obtained. Ro lled CC and lateral views were also obtained. COMPARISON: 08/19/2018 FINDINGS: Breast Density: The breast is heterogeneously dense, which may obscure small masses. Mass effect or e ffacement of asymmetry. Views are negative. No mass or architectural distortion. IMPRESSION: No mammographic evidence of malignancy. BI-RADS Category 1: Negative. Recommend routine screening mammography in one year. A "normal" or negative report should not discourage follow up or biopsy of a clinically significant f inding. A written summary of these findings will be mailed to the patient. The patient will be entered into a mammography reporting system which will generate a reminder letter for the patient's next appointmen t at the appropriate interval. FURTHER INFORMATION: According to the [employer], yearly mammograms are recommend ed starting at age 40 and continuing as long as a woman is in good health. Breast MRI is recommended for women with an approximately 20-25% or greater lifetime risk of breast cancer, including women wi th a strong family history of breast or ovarian cancer and women who have been treated for Hodgkin's disease. Signer Name: Michael Sofia MD Signed: 10/07/2018 9:20 AM Workstation Name: [id number]
== END 2018-10-07 08:38 | disposition home or self-care (01) ==
LOC: MAMMO 08:37
PROVIDERS: ATTEND Internal Medicine
DX: R92.8 Other abnormal and inconclusive findings on diagnostic imaging of breast (principal); I10 Essential (primary) hypertension; K21.9 Gastro-esophageal reflux disease without esophagitis; Z90.710 Acquired absence of both cervix and uterus

== ENCOUNTER 2020-01-15 01:57 | Inpatient (IN) | payer OTHER ==
[2020-01-15] MEDS ORDERED: SODIUM CHLORIDE 0.9% 1000 ML 1,000 ML IV ONE (02:39)
[2020-01-15] MEDS ORDERED: diphenhydrAMINE 50 MG/ML VIAL IV ONE (02:39)
[2020-01-15] MEDS ORDERED: ONDANSETRON 4 MG/2 ML INJ IV ONE (02:39)
[2020-01-15] MEDS ORDERED: methylPREDNISolone Sod Succinate 125 MG/2 ML INJ IV ONE (02:40)
[2020-01-15] MEDS ORDERED: HYDROmorphone 1 MG/1 ML INJ IV ONE (02:40)
--- NOTE | 2020-01-15 02:41 | Emergency Department Report ---
ED Headache HPI - General Chief Complaint: Headache Stated Complaint: MIGRAINE CAN'T BREATHE Time Seen by Provider: 01/15/20 02:17 Source: patient Exam Limitations: no limitations - History of Present Illness Initial Comments: Patient is a 49-year-old female that presents emergency room with complaints of severe headache. Patient states her headache started earlier today. Patient states that her headache is so bad is making her anxious and and her anxiety is making her short of breath. Patient states her shortness of breath is better with rest and worse with anxiety. Patient denies chest pain. Patient denies fever and chills. Patient denies cough. Patient denies neck stiffness. Patient denies visual changes. Patient states she is having a classic migraine but the headache is the worst she is ever had. Patient states states that the headache is a 10 out of 10. Patient states in her occipital region. Patient states the headache is worsening. Patient denies recent travel. Patient denies recent international travel. Patient denies exposure to the novel coronavirus. Patient denies sick contacts. Patient denies fever and chills. Patient denies cough. Patient denies diarrhea. Patient denies coming in contact with anybody with symptoms of the novel coronavirus. Timing/Duration: 24 hours Quality: severe Head Injury Location: occipital Recent Head Trauma: chronic headaches, occasional headaches Modifying Factors: improves with: exposure to light, movement, rest Associated Symptoms: denies: confusion, fatigue, facial pain, fever/chills, flushing, loss of consciousness, nausea/vomiting, nasal congestion, nasal drainage, numbness in legs/feet, rash, seizures, sinus infection, stiff neck, vision changes, weakness Allergies/Adverse Reactions: Allergies fluticasone [From Flonase] Allergy (Verified 02/25/17 12:39) Unknown prochlorperazine [From Compazine] Allergy (Verified 02/25/17 12:39) Unknown Home Medications: Ambulatory Orders Pantoprazole [Protonix TAB] 40 mg PO QDAY #30 tablet 02/26/17 Acetaminophen [Acetaminophen TAB] 650 mg PO Q4H PRN #15 tablet 06/12/18 Apixaban [Eliquis] 5 mg PO Q12H #60 tablet 06/12/18 Apixaban [Eliquis] 10 mg PO Q12HR #10 tablet 06/12/18 Chlorthalidone [Thalitone] 25 mg PO QDAY #30 tablet 06/12/18 Losartan [Cozaar] 100 mg PO QDAY #30 tab 06/12/18 Spironolactone [Aldactone] 12.5 mg PO QDAY #30 tablet 06/12/18 carvediloL [Coreg] 3.125 mg PO BID #60 tablet 06/12/18 dilTIAZem CD [Cardizem CD] 180 mg PO QDAY #30 capsule 06/12/18 ED Review of Systems ROS: Stated complaint: MIGRAINE CAN'T BREATHE Other details as noted in HPI Constitutional: denies: chills, fever Eyes: denies: eye pain, eye discharge, vision change ENT: denies: ear pain, throat pain Respiratory: shortness of breath. denies: cough, wheezing Cardiovascular: denies: chest pain, palpitations Endocrine: no symptoms reported Gastrointestinal: denies: abdominal pain, nausea, diarrhea Genitourinary: denies: urgency, dysuria, discharge Musculoskeletal: denies: back pain, joint swelling, arthralgia Skin: denies: rash, lesions Neurological: as per HPI, headache. denies: weakness, paresthesias Psychiatric: anxiety. denies: depression Hematological/Lymphatic: denies: easy bleeding, easy bruising ED Past Medical Hx - Past Medical History Previous Medical History?: Yes Hx Hypertension: Yes Hx GERD: Yes Hx Headaches / Migraines: Yes Additional medical history: mag deficiency. A. fib - Surgical History Past Surgical History?: Yes Hx Cholecystectomy: Yes Additional Surgical History: hysterectomy - Family History Family history: no significant - Social History Smoking Status: Never Smoker Substance Use Type: None - Medications Home Medications: Home Medications Medication Instructions Recorded Confirmed Last Taken Type Pantoprazole [Protonix TAB] 40 mg PO QDAY #30 tablet 02/26/17 06/09/18 Unknown Rx Acetaminophen [Acetaminophen TAB] 650 mg PO Q4H PRN #15 tablet 06/12/18 Unknown Rx Apixaban [Eliquis] 5 mg PO Q12H #60 tablet 06/12/18 Unknown Rx Apixaban [Eliquis] 10 mg PO Q12HR #10 tablet 06/12/18 Unknown Rx Chlorthalidone [Thalitone] 25 mg PO QDAY #30 tablet 06/12/18 Unknown Rx Losartan [Cozaar] 100 mg PO QDAY #30 tab 06/12/18 06/09/1819 Rx Spironolactone [Aldactone] 12.5 mg PO QDAY #30 tablet 06/12/18 Unknown Rx carvediloL [Coreg] 3.125 mg PO BID #60 tablet 06/12/18 Unknown Rx dilTIAZem CD [Cardizem CD] 180 mg PO QDAY #30 capsule 06/12/18 Unknown Rx ED Physical Exam - General Limitations: No Limitations General appearance: alert, in no apparent distress - Head Head exam: Present: atraumatic, normocephalic - Eye Eye exam: Present: normal appearance, PERRL Pupils: Present: normal accommodation - ENT ENT exam: Present: mucous membranes moist - Neck Neck exam: Present: normal inspection - Respiratory Respiratory exam: Present: normal lung sounds bilaterally. Absent: respiratory distress, wheezes, rales, chest wall tenderness, accessory muscle use, decreased breath sounds - Cardiovascular Cardiovascular Exam: Present: regular rate, normal rhythm. Absent: systolic murmur, diastolic murmur, rubs, gallop - GI/Abdominal GI/Abdominal exam: Present: soft, normal bowel sounds - Extremities Exam Extremities exam: Present: normal inspection - Back Exam Back exam: Present: normal inspection - Neurological Exam Neurological exam: Present: alert, oriented X3 - Psychiatric Psychiatric exam: Present: normal affect, normal mood - Skin Skin exam: Present: warm, dry, intact, normal color. Absent: rash ED Course Vital Signs 01/15/20 01/15/20 01/15/20 02:06 02:22 02:30 Temperature 97.5 F L Pulse Rate 131 H 144 H 142 H Respiratory 16 20 16 Rate Blood Pressure 179/148 192/141 O2 Sat by Pulse 93 98 100 Oximetry 01/15/20 01/15/20 01/15/20 02:46 02:50 03:00 Temperature Pulse Rate 129 H 146 H Respiratory 18 17 16 Rate Blood Pressure 183/129 183/129 O2 Sat by Pulse 99 100 91 Oximetry 01/15/20 01/15/20 01/15/20 03:16 03:30 03:46 Temperature Pulse Rate 165 H 140 H 141 H Respiratory 16 18 20 Rate Blood Pressure 206/173 192/141 194/148 O2 Sat by Pulse 94 89 90 Oximetry 01/15/20 01/15/20 01/15/20 04:12 04:16 04:30 Temperature Pulse Rate 157 H 136 H Respiratory 26 H 19 25 H Rate Blood Pressure O2 Sat by Pulse 94 92 Oximetry 01/15/20 01/15/20 01/15/20 04:46 05:00 05:04 Temperature Pulse Rate 126 H 152 H 144 H Respiratory 18 16 Rate Blood Pressure 194/148 O2 Sat by Pulse 94 98 Oximetry 01/15/20 01/15/20 01/15/20 05:16 05:19 05:30 Temperature Pulse Rate 108 H 105 H 121 H Respiratory 15 18 Rate Blood Pressure 194/148 182/116 O2 Sat by Pulse 96 98 Oximetry 01/15/20 05:45 Temperature Pulse Rate 94 H Respiratory 12 Rate Blood Pressure 167/119 O2 Sat by Pulse 98 Oximetry - Reevaluation(s) Reevaluation #1: Patient states she is feeling much better. Patient's current heart rate is 80. 01/15/20 03:09 Reevaluation #2: Patient states he is feeling better. Patient is currently in A. fib RVR. Patient will be given Cardizem push and placed on a Cardizem drip. 01/15/20 04:59 Reevaluation #3: I discussed all results with patient. I discussed plan of care with patient. Patient agrees with plan of care and admission. Patient to be admitted to the hospitalist service. 01/15/20 05:10 Reevaluation #4: Patient's blood pressure remained elevated and the patient will be given 5 Lopressor. 01/15/20 05:50 Reevaluation #5: Patient's blood pressure is slowly improving. 01/15/20 06:19 - Consultations Consultation #1: Hospitalist consulted for admission. Hospitalist to admit patient. 01/15/20 05:15 ED Medical Decision Making - Lab Data Result diagrams: 01/15/20 03:24 01/15/20 03:24 - EKG Data -: EKG Interpreted by Or EKG shows normal: axis, intervals, QRS complexes, ST-T waves Rate: tachycardia - EKG Data Interpretation: other (A. fib) - Radiology Data Radiology results: report reviewed, image reviewed CHEST 1 VIEW INDICATION: sob. COMPARISON: 06/09/2018 FINDINGS: SUPPORT DEVICES: None. HEART: Mild cardiomegaly. LUNGS/PLEURA: Mild interstitial edema. ADDITIONAL FINDINGS: None. IMPRESSION: 1. Mild cardiomegaly with mild interstitial edema. CT head without contrast INDICATION : Patient complains of an Occipital headache x 1 day.. TECHNIQUE: Axial imaging performed from the skull apex through the skull base without the use of contrast. All CT scans at this location are performed using CT dose reduction for ALARA by means of automated exposure control. COMPARISON: CT head from 06/09/2018 FINDINGS: Parenchyma: No acute intracranial hemorrhage or parenchymal abnormality. Ventricles: Ventricles are normal in size and appear symmetric. Soft tissues: Soft tissues including the orbits appear normal. Bones: No acute osseous abnormality. Sinuses: Sinuses and mastoid air cells are clear. IMPRESSION: No acute abnormality. - Medical Decision Making Patient is a 49-year-old female that presents emergency room with complaints of shortness of breath and headache. Patient states her shortness of breath is secondary to her anxiety. Patient given a headache cocktail to include Dilaudid, Zofran, Benadryl and Solu-Medrol. Patient's headache improved. Patient's heart was initially tachycardic however after the patient was given fluids and the headache cocktail her heart rate improved. Due to the severity of the patient's headache the patient had a CT scan of the head which was negative for acute findings. Patient's heart rate then went up again and the patient was in A. fib RVR. Patient given Cardizem and placed on a Cardizem drip . Patient also found to have extremely elevated blood pressure even with a Cardizem drip. Patient's blood pressure was monitored to see if the Cardizem drip would bring the blood pressure down however it did not and the patient was given 5 mg of Lopressor. Patient had an EKG which showed A. fib and no other acute findings. Patient had a chest x-ray which showed cardiomegaly and interstitial edema. Patient admitted to the hospitalist service and into the ICU. Patient made to the hospitalist for further evaluation and treatment. Critical Care Time: Yes Critical care time in (mins) excluding proc time.: 35 Critical care attestation.: If time is entered above; I have spent that time in minutes in the direct care of this critically ill patient, excluding procedure time. Critical Care Time: 35 minutes ED Disposition Clinical Impression: Atrial fibrillation with RVR, SOB (shortness of breath), Hypertensive emergency without congestive heart failure Acute renal failure Qualifiers: Acute renal failure type: unspecified Qualified Code(s): N17.9 - Acute kidney failure, unspecified Headache Qualifiers: Headache type: unspecified Headache chronicity pattern: acute headache Intractability: intractable Qualified Code(s): R51.9 - Headache, unspecified Migraine Qualifiers: Migraine type: with aura Status migrainosus presence: with status migrainosus Intractability: intractable Qualified Code(s): G43.111 - Migraine with aura, intractable, with status migrainosus Disposition: 09 OP ADMIT IP TO THIS HOSP Is pt being admited?: Yes Does the pt Need Aspirin: No Condition: Critical Time of Disposition: 05:04
[2020-01-15 03:35] LABS: Basophils % (Auto) 0.4 % (0.0-1.8); Eosinophils % (Auto) 0.5 % (0.0-4.3); Hematocrit 43.7 % (30.3-42.9); Hemoglobin 14.6 gm/dl (10.1-14.3); Lymphocytes # (Auto) 2.7 K/mm3 (1.2-5.4); Lymphocytes % (Auto) 31.8 % (13.4-35.0); Mean Corpuscular HGB Conc 33 % (30-34); Mean Corpuscular Volume 96 fl (79-97); Monocytes # (Auto) 0.7 K/mm3 (0.0-0.8); Monocytes % (Auto) 8.8 % (0.0-7.3); Platelet Count 197 K/mm3 (140-440); Red Blood Count 4.55 M/mm3 (3.65-5.03); Red Cell Distribution Width 16.8 % (13.2-15.2)
[2020-01-15 03:55] LABS: Albumin 3.7 g/dL (3.9-5); Calcium 8.7 mg/dL (8.4-10.2)
--- NOTE | 2020-01-15 04:31 | Cat Scan Report ---
CT head without contrast INDICATION : Patient complains of an Occipital headache x 1 day.. TECHNIQUE: Axial imaging performed from the skull apex through the skull base without the use of con trast. All CT scans at this location are performed using CT dose reduction for ALARA by means of aut omated exposure control. COMPARISON: CT head from 06/09/2018 FINDINGS: Parenchyma: No acute intracranial hemorrhage or parenchymal abnormality. Ventricles: Ventricles are normal in size and appear symmetric. Soft tissues: Soft tissues including the orbits appear normal. Bones: No acute osseous abnormality. Sinuses: Sinuses and mastoid air cells are clear. IMPRESSION: No acute abnormality. Signer Name: Luisito Lindsay MD Signed: 01/15/2020 4:27 AM Workstation Name: [id number]
[2020-01-15] MEDS ORDERED: dilTIAZem 25 MG/5 ML INJ IV ONE (04:59)
[2020-01-15] MEDS ORDERED: dilTIAZem/D5W 100 MG/100 ML BAG IV SCH (05:00)
--- NOTE | 2020-01-15 05:57 | XRay Report ---
CHEST 1 VIEW INDICATION: sob. COMPARISON: 06/09/2018 FINDINGS: SUPPORT DEVICES: None. HEART: Mild cardiomegaly. LUNGS/PLEURA: Mild interstitial edema. ADDITIONAL FINDINGS: None. IMPRESSION: 1. Mild cardiomegaly with mild interstitial edema. Signer Name: Luisito Lindsay MD Signed: 01/15/2020 5:52 AM Workstation Name: [id number]
[2020-01-15 06:02] LABS: Creatine Kinase MB 15.7 ng/mL (0.0-4.0)
[2020-01-15] MEDS ORDERED: METOPROLOL TARTRATE 5 MG/5 ML INJ IV ONE ×2 (06:02→06:04)
[2020-01-15] MEDS ORDERED: ACETAMINOPHEN 325 MG TAB PO PRN (06:27)
[2020-01-15] MEDS ORDERED: ONDANSETRON 4 MG/2 ML INJ IV PRN (06:28)
--- NOTE | 2020-01-15 07:06 | History and Physical Report ---
History of Present Illness Date of examination: 01/15/20 Date of admission: 01/15/20 05:06 Chief complaint: Headache History of present illness: history of presenting illness. patient is a 49 year old female who presents with headache that was described as severe and associated with anxiety and shortness of breath . There is no history os associated with chest pain, dizziness, blurry vision ,nausea and vomiting. Patient suddenly developed atrial fibrillation with rapid ventricular rate while getting treatment for headache. Past History Past Medical History: atrial fib, GERD, hypertension, renal failure Past Surgical History: cholecystectomy, hysterectomy Social history: no significant social history Family history: no significant family history Medications and Allergies Allergies Allergy/AdvReac Type Severity Reaction Status Date / Time fluticasone [From Flonase] Allergy Unknown Verified 02/25/17 12:39 prochlorperazine Allergy Unknown Verified 02/25/17 12:39 [From Compazine] Home Medications Medication Instructions Recorded Confirmed Last Taken Type Pantoprazole [Protonix TAB] 40 mg PO QDAY #30 tablet 02/26/17 06/09/18 Unknown Rx Acetaminophen [Acetaminophen TAB] 650 mg PO Q4H PRN #15 tablet 06/12/18 Unknown Rx Apixaban [Eliquis] 5 mg PO Q12H #60 tablet 06/12/18 Unknown Rx Apixaban [Eliquis] 10 mg PO Q12HR #10 tablet 06/12/18 Unknown Rx Chlorthalidone [Thalitone] 25 mg PO QDAY #30 tablet 06/12/18 Unknown Rx Losartan [Cozaar] 100 mg PO QDAY #30 tab 06/12/18 06/09/18 06/09/18 Rx Spironolactone [Aldactone] 12.5 mg PO QDAY #30 tablet 06/12/18 Unknown Rx carvediloL [Coreg] 3.125 mg PO BID #60 tablet 06/12/18 Unknown Rx dilTIAZem CD [Cardizem CD] 180 mg PO QDAY #30 capsule 06/12/18 Unknown Rx Active Meds: Active Medications Acetaminophen (Tylenol) 650 mg PO Q4H PRN PRN Reason: Headache Heparin Sodium (Porcine) (Heparin) 5,000 unit SUB-Q Q12HR ERIC Diltiazem HCl (Cardizem/D5w 100mg/100ml) 100 mg in 100 mls @ 5 mls/hr IV TITR ERIC; Protocol Last Admin: 01/15/20 05:19 Dose: 5 mg/hr, 5 mls/hr Documented by: Ondansetron HCl (Zofran) 4 mg IV Q8H PRN PRN Reason: Nausea And Vomiting Review of Systems Constitutional: no fever, no chills, no weakness Eyes: bilateral: other (NO BILATERAL EYE SYMPTOM) Ears, nose, mouth and throat: no ear pain Breasts: deferred Cardiovascular: palpitations, rapid/irregular heart beat, shortness of breath, no chest pain, no orthopnea, no edema, no syncope, no lightheadedness Respiratory: no cough, no shortness of breath, no dyspnea on exertion, no congestion, no wheezing Gastrointestinal: no abdominal pain, no nausea, no vomiting, no diarrhea, no constipation Musculoskeletal: no neck stiffness, no neck pain Integumentary: no rash, no pruritis, no redness, no sores, no wounds Neurological: headaches, no paralysis, no weakness, no numbness, no tingling, no seizures, no syncope, no tremors, no ataxia, no vertigo Psychiatric: anxiety, no hypersomnia, no depression, no confusion Endocrine: no polyphagia, no excessive thirst, no polydipsia, no polyuria, no nocturia Hematologic/Lymphatic: no easy bruising Exam - Constitutional Vitals: Temp Pulse Resp BP Pulse Ox 97.5 F L 92 H 12 159/123 98 01/15/20 02:06 01/15/20 06:06 01/15/20 05:45 01/15/20 06:06 01/15/20 05:45 General appearance: Present: mild distress - EENT Eyes: Present: PERRL, EOM intact ENT: hearing intact, clear oral mucosa, dentition normal - Neck Neck: Present: supple, normal ROM - Respiratory Respiratory effort: normal - Cardiovascular Rhythm: irregularly irregular Heart Sounds: Present: S1 & S2. Absent: systolic murmur, diastolic murmur, click - Extremities Extremities: no ischemia, No edema Peripheral Pulses: within normal limits - Abdominal General gastrointestinal: Present: soft, non-tender, non-distended. Absent: tender, distended, rigid Female genitourinary: Present: deferred - Rectal Rectal Exam: deferred - Integumentary Integumentary: Present: clear, warm, dry. Absent: jaundice - Musculoskeletal Musculoskeletal: strength equal bilaterally - Psychiatric Psychiatric: appropriate mood/affect HEART Score - HEART Score Risk factors: 1-2 risk factors Troponin: Troponin T 0.019 ng/mL (0.00-0.029) 01/15/20 05:25 Troponin: < normal limit - Critical Actions Critical Actions: 0-3 pts:0.9-1.7%risk of adverse cardiac event.Candidate for discharge Results - Labs CBC & Chem 7: 01/15/20 03:24 01/15/20 03:24 Labs: Laboratory Last Values WBC 8.5 K/mm3 (4.5-11.0) 01/15/20 03:24 RBC 4.55 M/mm3 (3.65-5.03) 01/15/20 03:24 Hgb 14.6 gm/dl (10.1-14.3) H 01/15/20 03:24 Hct 43.7 % (30.3-42.9) H 01/15/20 03:24 MCV 96 fl (79-97) 01/15/20 03:24 MCH 32 pg (28-32) 01/15/20 03:24 MCHC 33 % (30-34) 01/15/20 03:24 RDW 16.8 % (13.2-15.2) H 01/15/20 03:24 Plt Count 197 K/mm3 (140-440) 01/15/20 03:24 Lymph % (Auto) 31.8 % (13.4-35.0) 01/15/20 03:24 [place] % (Auto) 8.8 % (0.0-7.3) H 01/15/20 03:24 Eos % (Auto) 0.5 % (0.0-4.3) 01/15/20 03:24 Baso % (Auto) 0.4 % (0.0-1.8) 01/15/20 03:24 Lymph # (Auto) 2.7 K/mm3 (1.2-5.4) 01/15/20 03:24 [place] # (Auto) 0.7 K/mm3 (0.0-0.8) 01/15/20 03:24 Eos # (Auto) 0.0 K/mm3 (0.0-0.4) 01/15/20 03:24 Baso # (Auto) 0.0 K/mm3 (0.0-0.1) 01/15/20 03:24 Seg Neutrophils % 58.5 % (40.0-70.0) 01/15/20 03:24 Seg Neutrophils # 5.0 K/mm3 (1.8-7.7) 01/15/20 03:24 Sodium 137 mmol/L (137-145) 01/15/20 03:24 Potassium 3.2 mmol/L (3.6-5.0) L 01/15/20 03:24 Chloride 98.2 mmol/L (98-107) 01/15/20 03:24 Carbon Dioxide 24 mmol/L (22-30) 01/15/20 03:24 Anion Gap 18 mmol/L 01/15/20 03:24 BUN 24 mg/dL (7-17) H 01/15/20 03:24 Creatinine 1.8 mg/dL (0.6-1.2) H 01/15/20 03:24 Estimated GFR 36 ml/min 01/15/20 03:24 BUN/Creatinine Ratio 13 % 01/15/20 03:24 Glucose 137 mg/dL (65-100) H 01/15/20 03:24 Calcium 8.7 mg/dL (8.4-10.2) 01/15/20 03:24 Total Bilirubin 1.00 mg/dL (0.1-1.2) 01/15/20 03:24 AST 45 units/L (5-40) H 01/15/20 03:24 ALT 31 units/L (7-56) 01/15/20 03:24 Alkaline Phosphatase 55 units/L (35-129) 01/15/20 03:24 Total Creatine Kinase 674 units/L (30-135) H 01/15/20 05:25 CK-MB (CK-2) 15.7 ng/mL (0.0-4.0) H 01/15/20 05:25 CK-MB (CK-2) Rel Index 2.3 (0-4) 01/15/20 05:25 Troponin T 0.019 ng/mL (0.00-0.029) 01/15/20 05:25 Total Protein 6.3 g/dL (6.3-8.2) 01/15/20 03:24 Albumin 3.7 g/dL (3.9-5) L 01/15/20 03:24 Albumin/Globulin Ratio 1.4 % 01/15/20 03:24 Assessment and Plan - Patient Problems (1) Acute renal failure Current Visit: Yes Status: Acute Qualifiers: Acute renal failure type: unspecified Qualified Code(s): N17.9 - Acute kidn ey failure, unspecified Plan to address problem: NEPHROLOGY CONSULT (2) Atrial fibrillation with RVR Current Visit: Yes Status: Acute Plan to address problem: 1. I.V CARDIZEM DRIP 2. SERIAL CARDIAC ENZYMES 3, CARDIOLOGY CONSULT
[2020-01-15] MEDS ORDERED: HEPARIN 5,000 UNIT/1 ML VIAL SUB-Q SCH (10:00)
[2020-01-15] MEDS ORDERED: PANTOPRAZOLE 40 MG TAB PO SCH (10:00)
[2020-01-15] MEDS ORDERED: SPIRONOLACTONE 25 MG TAB PO SCH (10:00)
[2020-01-15] MEDS ORDERED: APIXABAN 5 MG TAB PO SCH (10:00)
[2020-01-15] MEDS ORDERED: carvediloL 3.125 MG TAB PO SCH (10:00)
[2020-01-15] MEDS ORDERED: dilTIAZem CD 180 MG CAP PO SCH (10:00)
[2020-01-15] MEDS ORDERED: carvediloL 3.125 MG TAB ONE (10:02)
[2020-01-15] MEDS ORDERED: APIXABAN 5 MG TAB ONE (10:02)
[2020-01-15] MEDS ORDERED: PANTOPRAZOLE 40 MG TAB PO ONE (10:03)
--- NOTE | 2020-01-15 10:11 | Progress Note ---
Subjective Date of service: 01/15/20 Interval history: CONSULT DICTATED Objective Vital Signs Temp Pulse Resp BP BP Pulse Ox 01/15/20 10:07 104 H 01/15/20 07:33 18 100 01/15/20 07:24 77 18 137/107 98 01/15/20 07:16 77 13 137/107 96 01/15/20 07:00 72 18 137/118 100 01/15/20 06:46 74 19 137/118 88 01/15/20 06:30 12 170/114 100 01/15/20 06:15 78 18 160/122 98 01/15/20 06:06 92 H 159/123 01/15/20 06:00 100 H 19 159/123 99 01/15/20 05:45 94 H 12 167/119 98 01/15/20 05:30 121 H 18 182/116 98 01/15/20 05:19 105 H 01/15/20 05:16 108 H 15 194/148 96 01/15/20 05:04 144 H 01/15/20 05:00 152 H 16 194/148 98 01/15/20 04:46 126 H 18 94 01/15/20 04:30 136 H 25 H 92 01/15/20 04:16 157 H 19 94 01/15/20 04:12 26 H 01/15/20 03:46 141 H 20 194/148 90 01/15/20 03:30 140 H 18 192/141 89 01/15/20 03:16 165 H 16 206/173 94 01/15/20 03:00 146 H 16 183/129 91 01/15/20 02:50 17 100 01/15/20 02:46 129 H 18 183/129 99 01/15/20 02:30 142 H 16 192/141 100 01/15/20 02:22 144 H 20 98 01/15/20 02:06 97.5 F L 131 H 16 179/148 93 - Labs and Meds Cardiac Enzymes 01/15/20 01/15/20 Range/Units 03:24 05:25 AST 45 H (5-40) units/L CK-MB (CK-2) 15.7 H (0.0-4.0) ng/mL CBC 01/15/20 Range/Units 03:24 WBC 8.5 (4.5-11.0) K/mm3 RBC 4.55 (3.65-5.03) M/mm3 Hgb 14.6 H (10.1-14.3) gm/dl Hct 43.7 H (30.3-42.9) % Plt Count 197 (140-440) K/mm3 Lymph # (Auto) 2.7 (1.2-5.4) K/mm3 [place] # (Auto) 0.7 (0.0-0.8) K/mm3 Eos # (Auto) 0.0 (0.0-0.4) K/mm3 Baso # (Auto) 0.0 (0.0-0.1) K/mm3 Comprehensive Metabolic Panel 01/15/20 Range/Units 03:24 Sodium 137 (137-145) mmol/L Potassium 3.2 L (3.6-5.0) mmol/L Chloride 98.2 (98-107) mmol/L Carbon Dioxide 24 (22-30) mmol/L BUN 24 H (7-17) mg/dL Creatinine 1.8 H (0.6-1.2) mg/dL Glucose 137 H (65-100) mg/dL Calcium 8.7 (8.4-10.2) mg/dL AST 45 H (5-40) units/L ALT 31 (7-56) units/L Alkaline Phosphatase 55 (35-129) units/L Total Protein 6.3 (6.3-8.2) g/dL Albumin 3.7 L (3.9-5) g/dL
[2020-01-15 15:18] LABS: Creatine Kinase MB 14.4 ng/mL (0.0-4.0)
[2020-01-15 16:37] VITALS: BP 116/92
--- NOTE | 2020-01-15 16:41 | Consultation ---
History of Present Illness - Reason for Consult Consult date: 01/15/20 chronic renal failure Requesting physician: HAIDER CORDERO - History of Present Illness This is a 49 yo F with past medical history of hypertension, CKD stage 3, who presented with severe headache, associated with anxiety and shortness of breath. There is no history os associated with chest pain, dizziness, blurry vision ,nausea and vomiting. In ER pt developed atrial fibrillation with rapid ventr icular rate while getting treatment for headache. Labs showed elevated BUN/Cr at 24/1.8mg/dl along with elevated CPK at 674. K was mildly low at 3.2. renal consult is requested for management of CHELLY/CKD. pt states that she has underlying CKD with baseline Cr around 1.3-1.7 in the past. denies recent NSAIDs use or IV contrast exposure. Past History Past Medical History: atrial fib, GERD, hypertension, renal failure Past Surgical History: cholecystectomy, hysterectomy Social history: no significant social history Family history: no significant family history Medications and Allergies Allergies Allergy/AdvReac Type Severity Reaction Status Date / Time fluticasone [From Flonase] Allergy Unknown Verified 02/25/17 12:39 prochlorperazine Allergy Unknown Verified 02/25/17 12:39 [From Compazine] Home Medications Medication Instructions Recorded Confirmed Last Taken Type Acetaminophen [Acetaminophen TAB] 650 mg PO Q4H PRN #15 tablet 06/12/18 01/15/20 Unknown Rx Apixaban [Eliquis] 5 mg PO Q12H #60 tablet 06/12/18 01/15/20 01/15/20 Rx Chlorthalidone [Thalitone] 25 mg PO QDAY #30 tablet 06/12/18 01/15/20 Unknown Rx Losartan [Cozaar] 100 mg PO QDAY #30 tab 06/12/18 01/15/20 01/15/20 Rx carvediloL [Coreg] 3.125 mg PO BID #60 tablet 06/12/18 01/15/20 01/15/20 Rx dilTIAZem CD [Cardizem CD] 180 mg PO QDAY #30 capsule 06/12/18 01/15/20 01/15/20 Rx Active Meds: Active Medications Acetaminophen (Tylenol) 650 mg PO Q4H PRN PRN Reason: Headache Apixaban (Eliquis) 5 mg PO Q12H ERIC; Protocol Last Admin: 01/15/20 10:06 Dose: 5 mg Documented by: Carvedilol (Coreg) 3.125 mg PO BID [facility] Last Admin: 01/15/20 10:07 Dose: 3.125 mg Documented by: Diltiazem HCl (Cardizem Cd) 180 mg PO QDAY [facility] Last Admin: 01/15/20 10:18 Dose: 180 mg Documented by: Diltiazem HCl (Cardizem/D5w 100mg/100ml) 100 mg in 100 mls @ 5 mls/hr IV TITR [facility]; Protocol Last Titration: 01/15/20 15:46 Dose: Infused Documented by: Ondansetron HCl (Zofran) 4 mg IV Q8H PRN PRN Reason: Nausea And Vomiting Pantoprazole Sodium (Protonix) 40 mg PO QDAC [facility] Last Admin: 01/15/20 10:06 Dose: 40 mg Documented by: Spironolactone (Aldactone) 12.5 mg PO QDAY [facility] Last Admin: 01/15/20 12:01 Dose: 12.5 mg Documented by: Review of Systems All systems: negative Constitutional: weakness Cardiovascular: palpitations Neurological: headaches Exam - Vital Signs Vital signs: Vital Signs Temp Pulse Resp BP Pulse Ox 97.5 F L 131 H 16 179/148 93 01/15/20 02:06 01/15/20 02:06 01/15/20 02:06 01/15/20 02:06 01/15/20 02:06 - General Appearance General appearance: well-developed, well-nourished, appears stated age EENT: ATNC, PERRL, mucous membranes moist Neck: Present: neck supple Respiratory: Clear to Ascultation Heart: irregularly irregular Gastrointestinal: Present: normoactive bowel sounds Integumentary: no rash Neurologic: no focal deficit, alert and oriented x3, strength 5/5, CN 3-12 intact Psychiatric: mood/affect appropriate, cooperative Results - Lab Results 01/15/20 03:24 01/15/20 03:24 Most recent lab results Calcium 8.7 mg/dL (8.4-10.2) 01/15/20 03:24 Assessment and Plan - Patient Problems (1) Acute renal failure Current Visit: Yes Status: Acute Qualifiers: Acute renal failure type: unspecified Qualified Code(s): N17.9 - Acute kidney failure, unspecified Plan to address problem: acute kidney injury likely 2/2 pre-renal azotemia, hemodynamic changes in the setting of A-fib with RVR. UA showed > 500mg urine protein, check urine Protein/Cr raito along with urine lytes. Pt received IV NS bolus x 1 L, strict I/Os. avoid nephrotoxins, NSAIDs IV contrast. 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
--- NOTE | 2020-01-15 17:54 | Progress Note ---
Assessment and Plan Assessment and plan: --Chronic kidney disease stage III Current Visit: Yes Status: Acute Plan to address problem: Motor nephropathy, gentle hydration, monitor renal function Avoid nephrotoxins, nephrology consulted --Atrial fibrillation with RVR Current Visit: Yes Status: Acute Plan to address problem: On Cardizem drip, titrate to heart rate less than 100 Patient is on beta-blockers Cardizem and Eliquis at home Will resume home medications Titrate and DC Cardizem Patient is admitted to ICU Cardiology consulted --chronic anticoagulation Current Visit: Yes Status: Acute . Plan to address problem: Continue Eliquis --Hypokalemia; Current Visit: Yes Status: Acute Plan to address problem: replenish with KCl. Follow electrolytes --Mild rhabdomyolysis/elevated CK Current Visit: Yes Status: Acute . Plan to address problem: unknown etiology supportive care. Trend the CK levels --Hypertension Current Visit: Yes Status: Acute Plan to address problem: Moderate control Resume home antihypertensives --DVT prophylaxis patient is on Eliquis --DC planning per case management We will closely monitor the patient and adjust management as needed Follow nephrology and renal consultation and recommendations Critical care time 45 minutes History Interval history: I have seen and examined the patient in ICU this morning Patient's chart and medications reviewed Admitted with Pita mike with rapid ventricular rate on Cardizem drip Patient feels slightly better Complains of generalized weakness Vital signs noted Hospitalist Physical - Constitutional Vitals: Temp Pulse Resp BP Pulse Ox 97.5 F L 77 19 116/92 95 01/15/20 02:06 01/15/20 16:00 01/15/20 16:00 01/15/20 16:30 01/15/20 16:30 General appearance: Present: mild distress, well-nourished - EENT Eyes: Present: PERRL, EOM intact - Neck Neck: Present: supple, normal ROM - Respiratory Respiratory effort: normal Respiratory: bilateral: diminished, negative: rales, rhonchi, wheezing - Cardiovascular Rhythm: regular Heart Sounds: Present: S1 & S2 - Extremities Extremities: no ischemia, No edema - Abdominal General gastrointestinal: soft, non-tender, non-distended, normal bowel sounds - Integumentary Integumentary: Present: clear, warm - Psychiatric Psychiatric: appropriate mood/affect, cooperative - Neurologic Neurologic: CNII-XII intact, moves all extremities HEART Score - HEART Score Risk factors: 1-2 risk factors Troponin: Troponin T < 0.010 ng/mL (0.00-0.029) 01/15/20 14:24 Troponin: < normal limit - Critical Actions Critical Actions: 0-3 pts:0.9-1.7%risk of adverse cardiac event.Candidate for discharge Results - Labs CBC & Chem 7: 01/15/20 03:24 01/15/20 03:24 Labs: Laboratory Last Values WBC 8.5 K/mm3 (4.5-11.0) 01/15/20 03:24 RBC 4.55 M/mm3 (3.65-5.03) 01/15/20 03:24 Hgb 14.6 gm/dl (10.1-14.3) H 01/15/20 03:24 Hct 43.7 % (30.3-42.9) H 01/15/20 03:24 MCV 96 fl (79-97) 01/15/20 03:24 MCH 32 pg (28-32) 01/15/20 03:24 MCHC 33 % (30-34) 01/15/20 03:24 RDW 16.8 % (13.2-15.2) H 01/15/20 03:24 Plt Count 197 K/mm3 (140-440) 01/15/20 03:24 Lymph % (Auto) 31.8 % (13.4-35.0) 01/15/20 03:24 [place] % (Auto) 8.8 % (0.0-7.3) H 01/15/20 03:24 Eos % (Auto) 0.5 % (0.0-4.3) 01/15/20 03:24 Baso % (Auto) 0.4 % (0.0-1.8) 01/15/20 03:24 Lymph # (Auto) 2.7 K/mm3 (1.2-5.4) 01/15/20 03:24 [place] # (Auto) 0.7 K/mm3 (0.0-0.8) 01/15/20 03:24 Eos # (Auto) 0.0 K/mm3 (0.0-0.4) 01/15/20 03:24 Baso # (Auto) 0.0 K/mm3 (0.0-0.1) 01/15/20 03:24 Seg Neutrophils % 58.5 % (40.0-70.0) 01/15/20 03:24 Seg Neutrophils # 5.0 K/mm3 (1.8-7.7) 01/15/20 03:24 Sodium 137 mmol/L (137-145) 01/15/20 03:24 Potassium 3.2 mmol/L (3.6-5.0) L 01/15/20 03:24 Chloride 98.2 mmol/L (98-107) 01/15/20 03:24 Carbon Dioxide 24 mmol/L (22-30) 01/15/20 03:24 Anion Gap 18 mmol/L 01/15/20 03:24 BUN 24 mg/dL (7-17) H 01/15/20 03:24 Creatinine 1.8 mg/dL (0.6-1.2) H 01/15/20 03:24 Estimated GFR 36 ml/min 01/15/20 03:24 BUN/Creatinine Ratio 13 % 01/15/20 03:24 Glucose 137 mg/dL (65-100) H 01/15/20 03:24 Calcium 8.7 mg/dL (8.4-10.2) 01/15/20 03:24 Total Bilirubin 1.00 mg/dL (0.1-1.2) 01/15/20 03:24 AST 45 units/L (5-40) H 01/15/20 03:24 ALT 31 units/L (7-56) 01/15/20 03:24 Alkaline Phosphatase 55 units/L (35-129) 01/15/20 03:24 Total Creatine Kinase 561 units/L (30-135) H 01/15/20 14:24 CK-MB (CK-2) 14.4 ng/mL (0.0-4.0) H 01/15/20 14:24 CK-MB (CK-2) Rel Index 2.5 (0-4) 01/15/20 14:24 Troponin T < 0.010 ng/mL (0.00-0.029) 01/15/20 14:24 Total Protein 6.3 g/dL (6.3-8.2) 01/15/20 03:24 Albumin 3.7 g/dL (3.9-5) L 01/15/20 03:24 Albumin/Globulin Ratio 1.4 % 01/15/20 03:24 Active Medications - Current Medications Current Medications: Generic Name Dose Route Start Last Admin Trade Name Freq PRN Reason Stop Dose Admin Acetaminophen 650 mg 01/15/20 06:27 Tylenol PO Q4H PRN Headache Apixaban 5 mg 01/15/20 10:00 01/15/20 10:06 Eliquis PO 5 mg Q12H ERIC Administration Protocol Carvedilol 3.125 mg 01/15/20 10:00 01/15/20 10:07 Coreg PO 3.125 mg BID ERIC Administration Diltiazem HCl 180 mg 01/15/20 10:00 01/15/20 10:18 Cardizem Cd PO 180 mg QDAY ERIC Administration Diltiazem HCl 100 mg in 100 mls @ 5 mls/hr 01/15/20 05:00 01/15/20 15:46 Cardizem/D5w 100mg/100ml IV Infused TITR ERIC Titration Protocol 5 MG/HR Ondansetron HCl 4 mg 01/15/20 06:28 Zofran IV Q8H PRN Nausea And Vomiting Pantoprazole Sodium 40 mg 01/15/20 10:00 01/15/20 10:06 Protonix PO 40 mg QDAC ERIC Administration Spironolactone 12.5 mg 01/15/20 10:00 01/15/20 12:01 Aldactone PO 12.5 mg QDAY ERIC Administration
--- NOTE | 2020-01-16 02:37 | Consultation ---
HISTORY OF PRESENT ILLNESS: The patient is a 49-year-old female who has a history of multiple medical problems including paroxysmal atrial fibrillation. She presented to the Emergency Room with complaints of severe headache and she has a known history of migraines. She normally goes to the [place]. She states the headache was prolonged, created anxiety and she feels that the anxiety resulted in shortness of breath. She has a history of hypertension, but no history of strokes or congestive heart failure. She gives a vague history of a heart attack 10 years ago, but she describes a negative coronary angiogram. There was no chest pain, palpitations, dizziness, or focal neurologic symptoms. There has been no ankle swelling. She is moderately active and has some dyspnea on exertion as well as fatigue for the past 3 weeks. There is no history of smoking. 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 A Cardiology consult was requested because of atrial fibrillation with a rapid ventricular response. She has been compliant with medications. She also gives a previous history of a small pulmonary embolus in 2019. She did not describe any infectious symptoms. She did not describe any active arthritis or skin problems. She has a hiatal hernia and has been having some epigastric discomfort. Normally, she sleeps well, but this has been disturbing her sleep. Usually, her blood pressure is under control. She states that she has had some renal dysfunction attributed to hypertension. SOCIAL HISTORY: Smoking: None. Alcohol: No heavy use. ALLERGIES: FLONASE AND COMPAZINE. MEDICATIONS: See the nurse's list. OPERATIONS: Cholecystectomy. FAMILY HISTORY: Noncontributory. REVIEW OF SYSTEMS: No other complaints or medical problems other than what is listed. She normally goes to the [place] for her medical care. She has been in this hospital in the past. PHYSICAL EXAMINATION: GENERAL: Well-developed, well-nourished, no acute distress. Alert, oriented, cooperative. Mental status normal. EYES, NOSE AND THROAT: Slightly hoarse. NECK: Reveals no JVD or bruits. Neck is supple, no masses. LUNGS: A few bibasilar dry rales. HEART: Irregular rhythm. No rubs, murmurs, gallops appreciable. ABDOMEN: Soft, nontender, no masses. Bowel sounds intact. EXTREMITIES: No cyanosis, clubbing, edema. Peripheral pulses are intact. NEUROLOGIC: Symmetrical. SKIN: Clear. LABORATORY DATA: EKG, atrial fibrillation, poor R-wave progression, lateral T-wave inversions. IMPRESSION: 1. Atrial fibrillation with rapid ventricular response, on Cardizem infusion, heart rate now controlled. 2. Hypertension: Uncontrolled on admission. 3. Severe migraines. 4. Shortness of breath: Possibly secondary to anxiety, possibly secondary to mild pulmonary edema on chest x-ray precipitated by tachycardia. Also, consider underlying pulmonary fibrosis from previous radiation. 5. Renal insufficiency with hypokalemia: The patient makes it sound as if she has chronic kidney disease. 6. History of pulmonary embolism in 2019, on anticoagulation. 7. Hiatal hernia with reflux. 8. History of asthma and bronchitis. 9. Prediabetes. 10. Remote history of pharyngeal cancer. PLAN: Heart rate control, blood pressure control, echocardiogram. May need followup chest x-ray. Thank you for this consultation. We will follow the patient. JOB# [id number] JDS/NTS
--- NOTE | 2020-01-16 19:06 | Discharge Summary ---
Providers - Providers Date of Admission: 01/15/20 05:06 Date of discharge: 01/16/20 Attending physician: EFREN CERON 01/15/20 06:24 Consult to Physician [CONS] Routine Comment: Consulting Provider: NATHEN VASQUEZ Physician Instructions: Reason For Exam: A. FIB WITH RVR 01/15/20 06:26 Consult to Physician [CONS] Routine Comment: Consulting Provider: ALICJA FLORES Physician Instructions: Reason For Exam: CKD 01/15/20 06:45 Consult to Physician [CONS] Routine Comment: spoke to at 0650 Consulting Provider: JORDIN ALFARO Physician Instructions: Reason For Exam: icu admission for frequent glucose mornitor Primary care physician: RELEASE ENGINEER Hospitalization Condition: Critical Hospital course: Acute on chronic kidney disease; due to vasomotor nephropathy Nephrology following Original Note: Assessment and Plan Assessment and plan: --Acute on chronic kidney disease stage III Current Visit: Yes Status: Acute Plan to address problem: Vasomotor nephropathy, gentle hydration, monitor renal function Avoid nephrotoxins, nephrology consulted --Atrial fibrillation with RVR Current Visit: Yes Status: Acute Plan to address problem: On Cardizem drip, titrate to heart rate less than 100 Patient is on beta-blockers Cardizem and Eliquis at home Will resume home medications Titrate and DC Cardizem Patient is admitted to ICU Cardiology consulted --chronic anticoagulation Current Visit: Yes Status: Acute . Plan to address problem: Continue Eliquis --Hypokalemia; Current Visit: Yes Status: Acute Plan to address problem: replenish with KCl. Follow electrolytes --Mild rhabdomyolysis/elevated CK Current Visit: Yes Status: Acute . Plan to address problem: unknown etiology supportive care. Trend the CK levels --Hypertension Current Visit: Yes Status: Acute Plan to address problem: Moderate control Resume home antihypertensives --DVT prophylaxis patient is on Eliquis --DC planning per case management We will closely monitor the patient and adjust management as needed Follow nephrology and renal consultation and recommendations Critical care time 45 minutes Disposition: [id number] LEFT AGAINST MED ADVICE Core Measure Documentation - Palliative Care Palliative Care/ Comfort Measures: Not Applicable Exam - Constitutional Vitals: Temp Pulse Resp BP Pulse Ox 97.5 F L 77 19 116/92 95 01/15/20 02:06 01/15/20 16:00 01/15/20 16:00 01/15/20 16:30 01/15/20 16:30 Plan Follow up with: PRIMARY CARE, [Primary Care Provider] - 3-5 Days
== END 2020-01-15 17:40 | disposition left against medical advice (07) | DRG 308 ==
LOC: ED 01:57 → CC1 05:06 → IMCU 06:30 → CC1 06:30 → IMCU 18:09 → 4A 18:09
PROVIDERS: ADMIT Internal Medicine; ATTEND Internal Medicine
DX: I48.0 Paroxysmal atrial fibrillation (principal); N17.0 Acute kidney failure with tubular necrosis; I16.1 Hypertensive emergency; M62.82 Rhabdomyolysis; G43.111 Migraine with aura, intractable, with status migrainosus; F41.9 Anxiety disorder, unspecified; K21.9 Gastro-esophageal reflux disease without esophagitis; E87.6 Hypokalemia; R73.03 Prediabetes; J45.909 Unspecified asthma, uncomplicated; I12.9 Hypertensive chronic kidney disease with stage 1 through stage 4 chronic kidney disease, or unspecified chronic kidney disease; N18.31 Chronic kidney disease, stage 3a; Z88.8 Allergy status to other drugs, medicaments and biological substances; Z79.899 Other long term (current) drug therapy; Z79.891 Long term (current) use of opiate analgesic; Z79.01 Long term (current) use of anticoagulants; Z90.49 Acquired absence of other specified parts of digestive tract; Z90.710 Acquired absence of both cervix and uterus; Z86.711 Personal history of pulmonary embolism
CPT/HCPCS: 36415; 70450; 71045; 80053; 82550; 82553; 84484; 85025; 90471; 93005; 93306; 96365; 96375; G0378; J1170; J1200; J2405; J2930; J7030